=== PATIENT | female | born 1975 | race Hispanic/Latino ===

== ENCOUNTER 2022-05-22 04:57 | Emergency (ER) | payer BC, OTHER ==
--- OUTSIDE RECORDS SUMMARY | 2022-05-22 05:02 | XMS REPORT | Continuity of Care Document ---
:[address] [facility] t Address [address] [place] [address] [address] [place] [address] Care Team Providers Name Role Phone [phone] Primary Care Physician Unavailable TIARRA RICK Attending Clinician Unavailable PARAM MONTELONGO Attending Clinician Unavailable SYSTEM, PROVIDER NOT IN Attending Clinician Unavailable MINH Attending Clinician Unavailable Quintin TATUM Attending Clinician Unavailable LJ Attending Clinician Unavailable CHILO LANDEROS Attending Clinician Unavailable Chilo Landeros MD Attending Clinician ROBERTA Attending Clinician Unavailable Lorena COLLINS Attending Clinician Unavailable GIBSON Attending Clinician Unavailable Manny EDGAR Attending Clinician Unavailable JEANNE Attending Clinician Unavailable Prabhjot TOMLIN Attending Clinician Miguel Angel TORRES Attending Clinician Unavailable BENITO Attending Clinician Unavailable Dileep NOLAN Attending Clinician Unavailable Galina ERICKSON Attending Clinician Unavailable Cristian SANZ Attending Clinician Unavailable [facility] Attending Clinician Unavailable Deepti MANCERA Attending Clinician DEEPTI Attending Clinician Unavailable PRABHJOT Admitting Clinician Unavailable JAYDA Admitting Clinician Unavailable MARY Admitting Clinician Unavailable Prabhjot TOMLIN Admitting Clinician LJ Admitting Clinician Unavailable Payers Payer Name Policy Type Policy Number Effective Date Expiration Date S alan [place] POS [id number] 2020 00:00:00 AETNA HMO [id number] 2015 2020 00:00:00 00:00:00 AETNA CHOICE [id number] 2019 POS II 00:00:00 [place] [id number] 2020 00:00:00 BCBS 2 [id number] 2021 00:00:00 Problems Condition Condition Condition Status Onset Resolution Last Treating Co mments Source Name Details Category Date Date Treatment Clinician Date Osteopenia Osteopenia Disease Active K elsey of necks of necks 9-20 Seybol d of both of both 00:00: femurs - femurs - 00 Not Not Controlled Controlled Obesity Obesity Disease Active Univers (BMI (BMI 4-24 ity of 30-39.9) 30-39.9) 00:00: [place] 00 Medical Branch Chest pain Chest pain Disease Active U nivers 4-24 ity of 00:00: [place] [id number] Medical Branch No known No known Disease Unive rs active active ity of problems problems [facility] Allergies, Adverse Reactions, Alerts Allergy Allergy Status Severity Reaction(s) Onset Inactive Treating Comm ents Source Name Type Date Date Clinician IODINATE Drug Active Low Nausea MD D Class 6 Anderso CONTRAST 00:00: n MEDIA 00 FENTANYL DRUG Active MD INGREDI 03-30 Anderso 00:00: n 00 MORPHINE DRUG Active MD INGREDI 03-30 Anderso 00:00: n 00 ONDANSET DRUG Active MD CELESTE INGREDI 03-30 Anderso 00:00: n 00 PROCHLOR DRUG Active MD PERAZINE INGREDI 03-30 Anderso 00:00: n 00 IODINATE Drug Active Low Nausea MD D Class 603 Anderso CONTRAST 00:00: n MEDIA 00 FENTANYL DRUG Active MD INGREDI 03-30 Anderso 00:00: n 00 MORPHINE DRUG Active MD INGREDI 6 Anderso 00:00: n 00 ONDANSET DRUG Active MD CELESTE INGREDI 03-30 Anderso 00:00: n 00 PROCHLOR DRUG Active MD PERAZINE INGREDI 03-30 Anderso 00:00: n 00 IODINATE Drug Active Low Nausea 2015- MD D Class 6-03 Anderso CONTRAST 00:00: n MEDIA 00 FENTANYL DRUG Active 2016-0 MD INGREDI 6-03 Anderso 00:00: n 00 MORPHINE DRUG Active 2016-0 MD INGREDI 6- Anderso 00:00: n 00 ONDANSET DRUG Active 2016-0 MD CELESTE INGREDI 6 Anderso 00:00: n 00 PROCHLOR DRUG Active 2015-0 MD PERAZINE INGREDI 6-03 Anderso 00:00: n 00 IODINATE Drug Active Low Nausea 2016-0 MD D Class 6-03 Anderso CONTRAST 00:00: n MEDIA 00 FENTANYL DRUG Active 2015-0 MD INGREDI 6 Anderso 00:00: n 00 MORPHINE DRUG Active 2015-0 MD INGREDI 6 Anderso 00:00: n 00 ONDANSET DRUG Active 2015-0 MD CELESTE INGREDI 6 Anderso 00:00: n 00 PROCHLOR DRUG Active 2015-0 MD PERAZINE INGREDI 6 Anderso 00:00: n 00 IODINATE Drug Active Low Nausea 2016-0 MD D Class 6-03 Anderso CONTRAST 00:00: n MEDIA 00 FENTANYL DRUG Active 2015-0 MD INGREDI 6 Anderso 00:00: n 00 IODINATE Drug Active 2015-0 MD D Class 6-03 Anderso CONTRAST 00:00: n MEDIA 00 MORPHINE DRUG Active 2015-0 MD INGREDI 6 Anderso 00:00: n 00 ONDANSET DRUG Active 2015-0 MD CELESTE INGREDI 6 Anderso 00:00: n 00 PROCHLOR DRUG Active 2015-0 MD PERAZINE INGREDI 6 Anderso 00:00: n 00 FENTANYL DRUG Active 2015-0 MD INGREDI 6 Anderso 00:00: n 00 IODINATE Drug Active 2016-0 MD D Class 6-03 Anderso CONTRAST 00:00: n MEDIA 00 MORPHINE DRUG Active 2015-0 MD INGREDI 6- Anderso 00:00: n 00 ONDANSET DRUG Active 2016-0 MD CELESTE INGREDI 6 Anderso 00:00: n 00 PROCHLOR DRUG Active 2015-0 MD PERAZINE INGREDI 6-03 Anderso 00:00: n 00 FENTANYL DRUG Active 2016-0 MD INGREDI 6-03 Anderso 00:00: n 00 MORPHINE DRUG Active 2015-0 MD INGREDI 6 Anderso 00:00: n 00 ONDANSET DRUG Active CELESTE INGREDI 03-30 Anderso 00:00: n 00 PROCHLOR DRUG Active PERAZINE INGREDI 03-30 Anderso 00:00: n 00 Fentanyl Propensi Active Anaphylaxis K elsey Citrate ty to 03-30 Seybold adverse 00:00: reaction 00 s Iodinate Propensi Active Anaphylaxis SHE HAD A Vero d ty to 03-30 CODE BLUE Seybold Contrast adverse 00:00: AT MD reaction 00 TY s WHEN THEY GAVE IT TO HER LAST TIME, AND SHE COULD NOT BREATH. She has tolerated iodinated contrast on multiple occasions with premedica tion.Pt vomited x1 from IV Iodine contrast infusion and is willing to proceed without any premedica tion, notified and said okay to proceed w/o premedica tionSHE HAD A CODE BLUE AT MD [place] WHEN THEY GAVE IT TO HER LAST TIME, AND SHE COULD NOT BREATH. She has tolerated iodinated contrast on multiple occasions with premedica tion.Pt vomited x1 from IV Iodine contrast infusion and is willing to proceed without any premedica tion, notified and said okay to proceed w/o premedica tion Morphine Propensi Active Hives Vero ty to 03-30 Seybold adverse 00:00: reaction 00 s Ondanset Propensi Active Hives Vero celeste ty to 03-30 Seybold adverse 00:00: reaction 00 s FENTANYL DRUG Active Anaphylaxis Uni vers INGREDI 03-30 ity of 00:00: [place] 00 [facility] IODINATE Drug Active Anaphylaxis Uni vers D Class 03-30 ity of CONTRAST 00:00: [place] MEDIA 00 Medical Branch MORPHINE DRUG Active Hives Univers INGREDI 03-30 ity of 00:00: [place] 00 [facility] Branch ONDANSET DRUG Active Hives Univers CELESTE INGREDI 03-30 ity of 00:00: [place] 00 Medical Branch PROCHLOR DRUG Active Hives Univers PERAZINE INGREDI 03-30 ity of 00:00: [place] 00 Medical Branch Iodinate Propensi Active Anaphylaxis SHE HAD A Univers d ty to 03-30 CODE BLUE ity of Contrast adverse 00:00: AT MD [place] Media reaction 00 TY Medica l s WHEN THEY Branch GAVE IT TO HER LAST TIME, AND SHE COULD NOT BREATH. She has tolerated iodinated contrast on multiple occasions with premedica tion. Prochlor Propensi Active Hives Vero perazine ty to 03-30 Ernesto Edisylat adverse 00:00: e reaction 00 s NO KNOWN Drug Active Univers ALLERGIE Class ity of S [facility] Social History Social Habit Start Date Stop Date Quantity Comments Source Exposure to Not sure Vero vee SARS-CoV-2 (event) Tobacco use and 2021-02-18 2021-02-18 Never used Universit y of exposure 00:00:00 00:00:00 [facility] Alcohol intake 2021-02-18 2021-02-18 Ex-drinker [facility] 00:00:00 00:00:00 (finding) [facility] Sex Ass[birth year] At [birth year] Vero rubio 00:00:00 00:00:00 Smoking Status Start Date Stop Date Source Never smoker [facility] acute hospital Medications Ordered Filled Start Stop Current Ordering Indication Dosage Frequency Signature Comments Components Source Medication Medication Date Date Medication? Clinician (SIG) Name Name Cholecalcif Yes Take by Giovanny rubin jesse 9-20 mouth 2 Seybold (Vitamin 16:46: times D3) 1.25 MG 30 daily (48000 UT) oral Capsule Zinc 10 MG Yes Take by Nhi ey mouth/throa 9-20 mouth Seybold t Lozenge 16:46: daily 30 Cyanocobala Yes 500ug Take 500 K elsey min 500 MCG 9-20 mcg by Seybol d oral Tablet 16:46: mouth 30 daily Hydroxychlo Yes 200mg Take 200 K elsey roquine 9-20 mg by Seybold Sulfate 200 16:46: mouth 2 MG oral 30 times Tablet daily Meloxicam Yes 15mg Take 15 mg Ke lsey 15 MG oral 9-20 by mouth Seybo ld Tablet 16:46: as needed 30 Multiple Yes 1{tbl} Take 1 Kelse y Vitamin 9-20 tablet by Seybold (Multi-Christina 16:46: mouth min) oral 30 daily Tablet Alendronate Yes [id number] 5mg Take 1 Vero Sodium 5 MG 9-20 tablet (5 Sey bold oral Tablet 00:00: mg total) 00 by mouth every morning (before breakfast) Lisdexamfet Yes [id number] 30mg Take 1 Vero amine 9-20 capsule Seybold Dimesylate 00:00: (30 mg (Vyvanse) 00 total) by 30 MG oral mouth Capsule every morning Gabapentin 2020- No 300mg Take 300 K elsey 100 MG oral 7-20 10-19 mg by Seybol d Capsule 00:00: 04:59 mouth 00 :00 nightly Pantoprazol Yes 40mg Take 40 mg Vero e Sodium 40 4-26 by mouth Seyb old MG oral 00:00: daily Tablet 00 (with Delayed breakfast) Response Sucralfate Yes 1000mg Take 1,000 Vero 1 g oral 4-26 mg by Seybold Tablet 00:00: mouth 4 00 times daily famotidine Yes 20mg 20 mg, Unive rs (PEPCID AC) 4-25 Oral, BID, it y of tablet 20 01:00: [place] 00 on [facility] Medical 02/18/21 at Jet 1999, Until Discontinu ed, Routine multivit-mi 2020- No Take by Yolis heller n-ferrous 4-24 04-24 mouth. ity of fumarate 9 22:00: 00:00 [place] mg iron/15 51 :00 Medical mL Liqd Jet hydroxychlo 2020- No 200mg Take 200 Univers roquine 4-24 04-24 mg by ity of sulfate 22:00: 00:00 mouth 2 [place] (PLAQUENIL 51 :00 (two) Medical ORAL) times Jet daily. ergocalcife 2020- No Take by Yolis heller rol, 4-24 04-24 mouth 2 ity of vitamin D2, 22:00: 00:00 (two) [place] (VITAMIN D [place] :00 times Medical ORAL) daily. Jet meloxicam 2020- No 15mg Take 15 mg U pina 15 mg TbDL 4-24 04-24 by mouth ity of 22:00: 00:00 daily. [place] 51 :00 Medical Branch predniSONE 202-0 202- No 50mg 50 mg, Univ ers (DELTASONE) 4-24 04-25 Oral, Q6H, i ty of tablet 50 17:00: 10:59 3 doses, Patel as mg 00 :00 First dose Medical on [facility] 02/18/21 at 1200, Last dose on 02/19/21 at 0000, Routine enoxaparin 2020-0 Yes 1mg/kg 90 mg Univ ers (LOVENOX) 4-24 (rounded ity of injection 15:45: [place] 87 mg [place] 90 mg 00 = 1 mg/kg Medical ?87 kg), [facility], Q12H, First dose (after last modificati on) on [facility] 02/18/21 at 1045, Until Discontinu ed, Routine HYDROcodone 2020-0 Yes 1{tbl} 1 tablet, Univers -acetaminop 4-24 Oral, ity of hen (NORCO) 14:32: Q6HPRN, Patel as 10-325 mg 39 Starting Medica l tablet 1 [facility] tablet 02/18/21 at 0932, Until Discontinu ed, Routine, Pain (scale 4-6) meloxicam 2020-0 Yes 15mg 15 mg, Univer s (MOBIC) 4-24 Oral, ity of tablet 15 14:00: DAILY, [place] mg 00 First dose Medical on [facility] 02/18/21 at 0900, Until Discontinu ed aspirin 2020-0 Yes 81mg 81 mg, Univers chewable 4-24 Oral, ity of tablet 81 14:00: DAILY, [place] mg 00 First dose Medical on [facility] 02/18/21 at 0900, Until Discontinu ed, Routine diphenhydrA 2020-0 Yes 50mg 50 mg, Univ ers MINE 4-24 Oral, ity of (BENADRYL) 13:46: SEE-INSTRU [place] tablet 50 52 CTIONS, 1 Medic al mg dose, Branch Starting [facility] 02/18/21 at 0846, Until Discontinu ed, Routine hydrOXYchlo 2020-0 Yes 200mg 200 mg, Un danielle roQUINE 4-24 Oral, BID, ity of (PLAQUENIL) 13:00: First dose [place] tablet 200 00 on [facility] Medical mg 02/18/21 at Branch 0800, Until Discontinu ed
Zuleyma cation: Rheumatic disorder maalox:diph 2020- No 15mL 15 mL, Uni vers enhydrAMINE 02-18 Oral, ity of :lidocaine 12:15: 13:59 ONCE, 1 Patel as 2 % viscous 00 :00 dose, Sat Med ical 1:1:1 02/18/21 at Jet (FIRST-MOUT 0715, HWASH BLM) Routine oral suspension 15 mL acetaminoph Yes 650mg 650 mg, Un danielle en 02-18 Oral, ity of (TYLENOL) 10:07: Q6HPRN, [place] tablet 650 04 Starting Medic al mg Sat Jet 02/18/21 at 0507, Until Discontinu ed, Routine, Pain (scale 1-3) multivit-mi Yes Take by Un danielle n-ferrous 5-05 mouth. ity of fumarate 9 19:10: [place] mg iron/15 45 Medical mL [facility] multivit-mi Yes Take by Un danielle n-ferrous 5-05 mouth. ity of fumarate 9 19:10: [place] mg iron/15 45 Medical mL [facility] multivit-mi Yes Take by Un danielle n-ferrous 5-05 mouth. ity of fumarate 9 19:10: [place] mg iron/15 45 Medical mL [facility] multivit-mi Yes Take by Un danielle n-ferrous 5-05 mouth. ity of fumarate 9 19:10: [place] mg iron/15 45 Medical mL [facility] Immunizations Ordered Filled Immunization Date Status Comments [facility] Immunization Name Name SARS-COV-2 COVID-19 2021-02-01 Completed Unive rsity of MODERNA VACCINE 00:00:00 [facility] Covid-19 Vaccine 2021-02-01 Completed Vero sawant (Moderna), 00:00:00 Mrna-lnp, Esau Protein, Pf, 100 Mcg/0.5ml,IM SARS-COV-2 COVID-19 2021-01-04 Completed Unive rsity of MODERNA VACCINE 00:00:00 [facility] Covid-19 Vaccine 2021-01-04 Completed Vero sawant (Moderna), 00:00:00 Mrna-lnp, Esau Protein, Pf, 100 Mcg/0.5ml,IM Vital Signs Vital Name Observation Time Observation Value Comments Source Systolic blood 2021-07-17 21:39:00 114 mm[Hg] Vero Mariscalyblakia pressure Diastolic blood 2021-07-17 21:39:00 76 mm[Hg] Anthony y Seybold pressure Heart rate 2021-07-17 21:39:00 109 /min Vero liconabohemalatha Body temperature 2021-07-17 21:39:00 36.39 Clarisse Nhi licona Seyblakia Respiratory rate 2021-07-17 21:39:00 20 /min Nhi Orozco Body height 2021-07-17 21:39:00 160 cm Vero liconabohemalatha Body weight 2021-07-17 21:39:00 86.274 kg Vero liconabohemalatha BMI 2021-07-17 21:39:00 33.69 kg/m2 Vero sawant HEIGHT 2021-02-18 18:13:09 158.5 cm WEIGHT 2021-02-18 18:13:09 86.2 kg Systolic blood 2021-02-18 16:22:00 115 mm[Hg] Univer sity of [facility] Diastolic blood 2021-02-18 16:22:00 79 mm[Hg] Unive rsity of [facility] Heart rate 2021-02-18 16:22:00 80 /min [facility] Body temperature 2021-02-18 16:22:00 36.44 Clarisse [facility] Res[facility] rate 2021-02-18 16:22:00 16 /min [facility] Oxygen saturation in 2021-02-18 16:22:00 91 /min [facility] blood by [facility] Pulse oximetry Branch Body height 2021-02-18 09:00:00 160 cm [facility] Body weight 2021-02-18 09:00:00 87 kg [facility] BMI 2021-02-18 09:00:00 33.98 kg/m2 [facility] WEIGHT 2021-02-09 09:04:00 87.5 kg WEIGHT 2021-01-25 07:07:00 85.2 kg WEIGHT 2021-01-19 11:07:00 87.3 kg WEIGHT 2021-01-12 09:04:00 86.8 kg HEIGHT 2021-01-05 13:21:00 158.5 cm WEIGHT 2021-01-05 13:21:00 85.9 kg HEIGHT 2020-08-23 10:12:02 158.5 cm WEIGHT 2020-08-23 10:12:02 81.6 kg HEIGHT 2020-05-05 00:00:00 158.5 cm WEIGHT 2020-05-05 00:00:00 84 kg HEIGHT 2020-04-26 00:00:00 158.5 cm WEIGHT 2020-04-26 00:00:00 83.3 kg Systolic blood 2020-03-01 19:14:00 131 mm[Hg] [facility] 2020-03-01 19:14:00 92 mm[Hg] Unive [facility] Heart rate 2020-03-01 19:07:00 120 /min [facility] Body temperature 2020-03-01 19:07:00 38.44 Clarisse [facility] Respiratory rate 2020-03-01 19:07:00 18 /min [facility] Body height 2020-03-01 19:07:00 160 cm [facility] Body weight 2020-03-01 19:07:00 80.74 kg [facility] BMI 2020-03-01 19:07:00 31.53 kg/m2 [facility] Oxygen saturation in 2020-03-01 19:07:00 99 /min [facility] Arterial blood by [facility] Pulse oximetry Branch Procedures Procedure Date / Time Performing Clinician Source Performed TROPONIN I 2021-02-18 10:54:00 Justyna Higgins [facility] THYROID STIMULATING 2021-02-18 10:54:00 Tiarra Rick [facility]ORMONE [facility] HEPATIC FUNCTION PANEL 2021-02-18 10:54:00 Tiarra Rick [facility] ([id number]) (ALB,T.PRO,BILI Medical Branch T,BU/BC,ALT,AST,ALK PHOS) BASIC METABOLIC PANEL 2021-02-18 10:54:00 Prabhjot [facility] (NA, K, CL, CO2, Medical Branch GLUCOSE, BUN, CREATININE, CA) LIPID PANEL 2021-02-18 10:54:00 [facility] ([id number])(TOTAL Medical Branch CHOLESTEROL, TRIGLYCERIDES, HDL) CBC WITH DIFF 2021-02-18 10:54:00 [facility] GLYCOSYLATED HEMOGLOBIN 2021-02-18 10:54:00 [facility] (A1C) [facility] PROTHROMBIN TIME / INR 2021-02-18 10:54:00 [facility] D-DIMER 2021-02-18 10:54:00 [facility] ACTIVATED PARTIAL 2021-02-18 10:54:00 [facility] THRMPLAS [facility] N-TERMINAL PRO-BNP 2021-02-18 10:54:00 Justyna Higgins [facility] POCT URINALYSIS 2020-03-01 00:00:00 Jennifer Tatum [facility] Encounters Start End Encounter Admission Attending Care Care Encounter Source Date/Time Date/Time Type Type Clinicians Facility Department ID 2021-11-30 Outpatient ROMI LLANOS [id number] 18:04:38 Andgloria davis 2021-11-30 Outpatient ROMI LLANOS [id number] 18:04:38 Andmeliao ryan 2021-11-30 Outpatient ROMI LLANOS [id number] 18:04:38 Andmeliao ryan 2021-08-27 Inpatient U [facility] [id number] Univers 15:02:07 [facility] 2021-08-18 Outpatient JAYDAROMI MASTERS Ale/Hep/Nu [id number] 17:00:56 PARAM davis 2021-04-20 Outpatient ROMI HUNTLEY MDA [id number] 12:43:19 PROVIDER Fadi o n 2020-05-17 Outpatient ROMI WILKINSON MDA [id number] 14:35:34 BALTAZAR davis 2020-05-06 Outpatient TATUM, MDA MDA [id number] 10:32:42 AKBAR Aponteo n 2022-05-14 2022-05-14 Outpatient ARLENE CALHOUN, MDA MDA [id number] 09:57:45 23:59:00 ULISES Esquivel rso n 2022-05-14 2022-05-14 Outpatient ARLENE CALHOUN, MDA MDA [id number] 07:51:04 07:51:04 ULISES Esquivel rso n 2021-09-18 2021-09-18 Outpatient ARLENE CALHOUN, MDA MDA [id number] 09:00:00 23:59:00 ULISES Esquivel rso n 2021-09-18 2021-09-18 Outpatient VERO LANDEROS [id number] Vero 16:30:00 16:30:00 ERIKA vee 2021-07-17 2021-07-17 Office Elías, Lyle [id number] Vero 16:37:57 17:07:57 Visit Erika Patton [id number] ramiro Gongora [id number] 2021-07-14 2021-07-14 Outpatient VERO LANDEROS [id number] Vero 14:30:00 14:30:00 ERIKA vee 2021-07-07 2021-07-07 Outpatient ARLENE GRANADOS, MDA MDA [id number] 09:33:43 23:59:00 BIGG davis 2021-07-07 2021-07-07 Outpatient ARLENE COLLINS, MDA MDA [id number] 13:54:46 15:12:27 MARLEN davis 2021-07-07 2021-07-07 Outpatient ARLENE COLLINS, MDA MDA [id number] 12:38:20 12:38:20 MARLEN davis 2021-07-07 2021-07-07 Outpatient ARLENE COLLINS, MDA MDA [id number] 11:51:02 11:51:02 MARLEN davis 2021-07-07 2021-07-07 Outpatient ARLENE DAMONI, MDA MDA [id number] MD 10:40:48 11:43:41 BIGG davis 2021-05-29 2021-05-29 Outpatient YANNI MAYA MDA MDA [id number] 15:20:00 23:59:00 Fadi davis 2021-05-16 2021-05-16 Outpatient ARLENE GRANADOS, MDA MDA [id number] MD 14:15:00 23:59:00 BIGG davis 2021-05-16 2021-05-16 Outpatient ARLENE GRANADOS, MDA MDA [id number] 13:21:36 14:43:37 BIGG davis 2021-04-30 2021-04-30 Outpatient ARLENE CALHOUN, MDA MDA [id number] 09:42:04 23:59:00 ULISES davis 2021-04-27 2021-04-27 Outpatient ARLENE CALHOUN, MDA MDA [id number] MD 09:30:00 23:59:00 ULISES davis 2021-04-27 2021-04-27 Outpatient ARLENE CALHOUN, MDA MDA [id number] 09:00:00 09:29:00 ULISES luke n 2021-02-18 2021-02-20 Outpatient ER EDGAR, MDA Emergency [id number] 14:57:00 17:34:00 BART davis 2021-02-19 2021-02-19 Outpatient ARLENE ANGEL, MDA MDA [id number] 08:21:47 08:46:40 KARMA davis 2021-02-18 2021-02-18 [facility] [id number] Univers 04:06:00 13:41:00 [facility] Tiarra Telles [id number] [facility] [id number] [facility] [id number] [facility] joey 081 Branch 2021-02-09 2021-02-09 Outpatient ARLENE CALHOUN, MDA MDA [id number] 09:00:00 23:59:00 ULISES davis 2021-02-01 2021-02-01 [facility] Quintin TORRES [facility] [id number] Univers 14:40:00 14:40:[address] [facility] 2021-01-25 2021-01-25 Outpatient EL LJ, MDA HN Surgery [id number] 05:45:00 14:46:00 ULISES Esquivel rso n 2021-01-23 2021-01-23 Outpatient LISA LAMAS MDA MDA [id number] 14:15:30 14:36:06 Fadi o n 2021-01-23 2021-01-23 Outpatient LISA LAMAS MDA MDA [id number] 12:11:05 12:20:10 Fadi o n 2021-01-19 2021-01-19 Outpatient EL LJ, MDA MDA [id number] 10:30:00 23:59:00 ULISES Esquivel rso n 2021-01-19 2021-01-19 Outpatient EL LJ, MDA MDA [id number] 09:22:16 09:22:16 ULISES Alvin rso n 2021-01-12 2021-01-12 Outpatient EL LJ, MDA MDA [id number] 10:00:00 23:59:00 ULISES Esquivel rso n 2021-01-12 2021-01-12 Outpatient EL LJ, MDA MDA [id number] 08:30:00 09:59:00 ULISES Esquivel rso n 2021-01-05 2021-01-05 Outpatient EL BUNI, MDA MDA [id number] 14:14:08 23:59:00 BIGG davis 2021-01-05 2021-01-05 Outpatient EL BUNI, MDA MDA [id number] 13:13:30 14:07:40 BIGG davis 2021-01-04 2021-01-04 Outpatient [facility] [id number] Univers 14:40:00 14:40:00 [facility] 2020-08-23 2020-08-23 Outpatient EL BUNI, MDA MDA [id number] MD 11:10:08 23:59:00 BIGG davis 2020-08-23 2020-08-23 Outpatient EL BUNI, MDA MDA [id number] MD 09:46:02 10:49:07 BIGG Mariners o n 2020-07-07 2020-07-07 Outpatient EL BUNI, MDA MDA [id number] MD 00:00:00 00:00:00 BIGG Mariners o n 2020-07-07 2020-07-07 Outpatient EL BUNI, MDA MDA [id number] MD 00:00:00 00:00:00 BIGG Mariners o n 2020-07-07 2020-07-07 Outpatient EL BUNI, MDA MDA [id number] MD 00:00:00 00:00:00 BIGG Mariners o n 2020-07-07 2020-07-07 Outpatient EL BUNI, MDA MDA [id number] MD 00:00:00 00:00:00 BIGG Mariners o n 2020-06-30 2020-06-30 Outpatient EL BUNI, MDA MDA [id number] MD 00:00:00 00:00:00 BIGG Mariners o n 2020-06-30 2020-06-30 Outpatient EL BUNI, MDA MDA [id number] MD 00:00:00 00:00:00 BIGG Mariners o n 2020-05-17 2020-05-17 Outpatient EL NEBGEN, MDA MDA [id number] MD 09:36:02 10:19:40 ALONDRACANDI Mariners o n 2020-05-16 2020-05-16 Outpatient EL BUNI, MDA MDA [id number] MD 11:56:24 11:56:24 BIGG Mariners o n 2020-05-05 2020-05-05 Outpatient EL BUNI, MDA MDA [id number] MD 10:33:33 11:22:14 BIGG Mariners o n 2020-05-05 2020-05-05 Outpatient EL BUNI, MDA MDA [id number] MD 00:00:00 00:00:00 BIGG Fadi o ryan 2020-05-03 2020-05-03 Outpatient EL RAMÓN-GINS MDA MDA [id number] MD 10:16:31 23:59:00 Fadi ORTEGA 2020-04-27 2020-04-27 Outpatient EL RAMÓN-GINS MDA MDA [id number] MD 10:16:09 23:59:00 Fadi ORTEGA 2020-04-27 2020-04-27 Outpatient EL BUNI, MDA MDA [id number] 07:12:23 07:12:23 BIGGTREY Aponte wilda davis 2020-04-27 2020-04-27 Outpatient EL BUNI, MDA MDA [id number] 07:12:03 07:12:03 BIGG Aponte wilda davis 2020-04-27 2020-04-27 Outpatient EL BUNI, MDA MDA [id number] 07:11:50 07:11:50 BIGG Fadimelia davis 2020-04-27 2020-04-27 Outpatient EL BUNI, MDA MDA [id number] 07:11:21 07:11:21 BIGG Marinmelia davis 2020-04-26 2020-04-26 Outpatient EL BUNI, MDA MDA [id number] 15:15:00 23:59:00 BIGG Marinmelia davis 2020-04-26 2020-04-26 Outpatient EL MDA MDA [id number] MD 15:51:10 15:51:10 Fadi davis 2020-04-26 2020-04-26 Outpatient EL LISETHWANI, MDA MDA [id number] MD 14:54:54 15:48:59 MARLEN davis 2020-04-26 2020-04-26 Outpatient EL BUNI, MDA MDA [id number] MD 15:00:00 15:14:00 BIGG Aponte wilda davis 2020-04-26 2020-04-26 Outpatient EL BUNI, MDA MDA [id number] MD 13:38:56 14:48:57 BIGG Fadimelia davis 2020-03-03 2020-03-03 Telephone Cristian BUD [id number] Univers 00:00:00 00:00:00 Erika ALVA [id number] it y of [facility] [id number] Patel as [phone] [address] 2020-03-02 2020-03-02 Telephone Pob1, Acute [facility] [id number] Univers 00:00:00 00:00:00 [facility] [id number] ity [facility] [id number] Patel as Proffilomenaio [phone] Mi dical [facility] [address] 2020-03-01 2020-03-01 Urgent Pob1, Acute Care Clinic [facility] 1. [id number] Univers 13:48:46 15:35:06 Anuj Jennifer Tatum [facility] [id number] lorena [facility] [id number] Patel as Michaelio [phone] Mi dical nal [address] 2020-03-01 2020-03-01 Outpatient R DEEPTI [facility] [id number] [facility] 13:40:00 13:40:00 JENNIFER moralorena [facility] Results Test Description Test Time Test Comments Results Result Comments Source TROPONIN I 2021-02-18 14:36:43 Test Item Value Reference Range Interpretation Comme nts TROPONIN I (test code = 0.000 ng/mL See_Comment [Au tomated message] The [id number]) system which ge nerated this result tra nsmitted reference range : <=0.034. The reference r yoav was not used to int erpret this result as normal/abnormal . KIERA (test code = KIERA) Equal or Less than 0.034 ng/ml---Normal ?Note: Cardiac troponin begins to rise 3-4 hours after the onset of ischemia. Repeat in 4-6 hours if the sample was drawn within 3-4 hours of the onset of the symptom and found normal. Between 0.035 and 0.120 ng/mL--- Borderline. Questionable myocardial injury or necrosis ? ?Note: Serial measurement may be necessary to confirm or exclude the diagnosis of myocardial injury or necrosis; Clinical correlation (symptoms, EKGs, imaging studies, and others) required; Repeat in 4-6 hours if clinically indicated. ? Equal or Higher than 0.121 ng/mL---Abnormal. Myocardial Injury or Necrosis Likely ? Biotin has been reported to cause a negative bias, interpret results relative to patient's use of biotin. ? Lab Interpretation (test Normal code = 19519-9) [facility] [id number] 14:33:42 Test Item Value Reference Range Interpretation Comments NT-proBNP (test code 24 pg/mL See_Comment [Autom ated = 1391957280) message] The system which generated this result transmitted reference range : <=125. The reference range was not used to interpret this result as normal/abnormal . KIERA (test code = KIERA) Biotin has been reported to cause a negative bias, interpret results relative to patient's use of biotin. Lab Interpretation Normal (test code = 18871-0) [facility] IrvingThyroid Stimulating Hormone (TSH)2021-02-18 12:09:34 Test Item Value Reference Range Interpretation Comments TSH (test code = See_Comment [Automated message] [id number]) The system [employer] generated this result transmitted ref erence range: 0.45 - 4 .70 mIU/L. The refe rence range was not u sed to interpret this result as normal/abnor mal. Lab Interpretation (test Normal code = 41068-0) [facility] Irving[facility]cosylated Hemoglobin (A1C)2021-02-18 11:50:23 Test Item Value Reference Range Interpretation Comments HGB A1C (test code = 5.7 % 4.0-5.7 4548-4) KIERA (test code = KIERA) Reference RangesNormal: <5.7%Prediabetes: 5.7 - 6.4%Diabetes: > 6.5% Lab Interpretation (test Normal code = 86617-2) [facility] Irving[facility] (Total Cholesterol, Triglycerides, HDL)2021-02-18 11:40:12 Test Item Value Reference Range Interpretation Comments CHOL (test code = 177 mg/dL 120-200 5150799755) HDL (test code = 36 mg/dL >50 L 1933114744) HDLC RATIO (test code = See_Comment H [Au tomated message] 4633719970) The system [employer] generated this result transmit fredis reference range : <=4.5. The refe rence range was not u sed to interpret th is result as normal/abnormal . TRIG (test code = 215 mg/dL 30-170 H 6929793906) LDL CHOL (test code = 98 mg/dL See_Comment [Auto mated message] 37863-3) The system [employer] generated this result transmit fredis reference range : <=160. The refe rence range was not u sed to interpret th is result as normal/abnormal . VLDL (test code = 43 mg/dL 5-60 9804604312) Lab Interpretation (test Abnormal code = 92270-6) [facility] METABOLIC PANEL (NA, K, CL, CO2, GLUCOSE, BUN, CREATININE, CA)2021-02-18 11:39:52 Test Item Value Reference Range Interpretation Comments NA (test code = 138 mmol/L 135-145 4248171654) K (test code = 3.7 mmol/L 3.5-5.0 1593868633) CL (test code = 104 mmol/L 98-108 8486299013) CO2 TOTAL (test code = 27 mmol/L 23-31 1635468820) AGAP (test code = 2-16 1951045353) BUN (test code = 8 mg/dL 7-23 4102367643) GLUCOSE (test code = 120 mg/dL 70-110 H 1492089170) CREATININE (test code = 0.45 mg/dL 0.50-1.04 L 5003805892) CALCIUM (test code = 9.6 mg/dL 8.6-10.6 2000732270) eGFR (test code = mL/min/1.73m2 2870265626) KIERA (test code = KIERA) Association of Glomerular Filtration Rate (GFR) and Staging of Kidney Disease* + --+ --+ ------+| GFR (mL/min/1.73 m2) ?| With Kidney Damage ?| ?Without Kidney Damage+ --------+ --------+ +| ?>90 ?| ?Stage one ?| ? Normal ?+ ---+ ---+ -------+| ?60-89 ?| ?Stage two ?| ? Decreased GFR ? + --+ --+ ------+| ?30-59 ?| ?Stage three ?| ? Stage three ? + --+ --+ ------+| ?15-29 ?| ?Stage four ? | ? Stage four ?+ ---+ ---+ -------+| ?<15 (or dialysis) ? ?| ?Stage five ? | ? Stage five ?+ ---+ ---+ -------+ *Each stage assumes the associated GFR level has been in effect for at least three months. ?Stages 1 to 5, with or without kidney disease, indicate chronic kidney disease. Notes: Determination of stages one and two (with eGFR >59mL/min/1.73 m2) requires estimation of kidney damage for at least three months as defined by structural or functional abnormalities of the kidney, manifested by either:Pathological abnormalities or Markers of kidney damage (including abnormalities in the composition of the blood or urine or abnormalities in imaging tests). Lab Interpretation Abnormal (test code = 31893-9) [facility]AT[facility] FUNCTION PANEL (36488) (ALB,T.PRO,BILI T,BU/BC,ALT,AST,ALK PHOS)2021-02-18 11:39:52 Test Item Value Reference Range Interpretation Comments TOTAL BILI (test code = 7902087570) 0.3 mg/dL 0.1-1.1 BILI UNCON (test code = 5489372707) 0.2 mg/dL 0.1-1.1 BILI CONJ (test code = 3591133006) 0.0 mg/dL 0.0-0.3 T PROTEIN (test code = 4567508367) 6.3 g/dL 6.3-8.2 ALBUMIN (test code = 9967142830) 3.9 g/dL 3.5-5.0 ALK PHOS (test code = 5327401070) 75 U/L 34-122 ALTv (test code = 1742-6) 32 U/L 5-35 AST(SGOT) (test code = 5384825071) 30 U/L 13-40 Lab Interpretation (test code = Normal 05099-1) [facility] [id number] 11:27:49 Test Item Value Reference Interpretation Comments Range D-DIMER (test code = See_Comment H [Autom ated 5901107329) message] The system which generated this result transmitted reference range : <0.41 ?g/mL (FEU). The reference range was not used to interpret this result as normal/abnormal . KIERA (test code = This test may be KIERA) used in conjunction with a clinical pretest probability (PTP) assessment model to exclude venous thromboembolism (VTE) in patients suspected of deep venous thrombosis (DVT) and pulmonary embolism (PE) A D-Dimer value less than 0.50 ?g/ml (FEU) has a negative predicative value of 96 to 100% (95% CI)and 97 to 100% (95% CI) as an aid in the diagnosis of deep vein thrombosis (DVT) and pulmonary embolism when there is low or moderate pretest probability of PE or DVT. D-Dimer values are expressed in initial fibrinogen equivalent units (FEU)" The assay results should be used with other information, including the clinical context, in forming a diagnosis. Lab Interpretation Abnormal (test code = 70558-7) [facility] IrvingaPTT2021-04-24 11:21:10 Test Item Value Reference Range Interpretation Comments APTT Patient (test See_Comment [Automat ed code = 3173-2) message] The system which generated this result transmitted reference range : 23 - 38 Seconds . The reference range was not used to interpr et this result as normal/abnormal . KIERA (test code = KIERA) The [facility] patient population mean normal value for aPTT is 30 seconds. Lab Interpretation Normal (test code = 50703-6) [facility] IrvingProthrombin Time / [id number] 11:19:09 Test Item Value Reference Range Interpretation Comments PROTIME PATIENT (test See_Comment [Auto mated message] code = 5964-2) The system wh ich generated this result transmitted ref erence range: 12.0 - 1 4.7 Seconds. The re ference range was not u sed to interpret this result as normal/abnor mal. INR (test code = 6301-6) Nor mal INR <1.1; Warfarin Therap eutic range 2.0 to 3. 0 or 2.5 to 3.5, dep ending upon the indica tions. Lab Interpretation (test Normal code = 00227-0) [facility] IrvingCBC WITH [id number] 11:09:46 Test Item Value Reference Range Interpretation Comments WBC (test code = See_Comment [Automated 0890-2) message] The sy stem which generated this result transmitted reference range : 4.30 - 11.10 10*3/?L. The reference range was not used to interpret this result as normal/abnormal . RBC (test code = See_Comment [Automated 139-8) message] The sy stem which generated this result transmitted reference range : 3.93 - 5.25 10*6/?L. The reference range was not used to interpret this result as normal/abnormal . HGB (test code = 11.8 g/dL 11.6-15.0 718-7) HCT (test code = 35.6 % 35.7-45.2 L 4544-3) MCV (test code = 87.7 fL 80.6-95.5 787-2) MCH (test code = 29.1 pg 25.9-32.8 785-6) MCHC (test code = 33.1 g/dL 31.6-35.1 786-4) RDW-SD (test code = 43.2 fL 39.0-49.9 43059-4) RDW-CV (test code = 13.4 % 12.0-15.5 788-0) PLT (test code = See_Comment [Automated 777-3) message] The sy stem which generated this result transmitted reference range : 166 - 358 10*3/ ?L. The reference r yoav was not used to interpret this result as normal/abnormal . MPV (test code = 11.6 fL 9.5-12.9 96113-8) NRBC/100 WBC (test See_Comment [Automat ed code = 0311230877) message] The system which generated this result transmitted reference range : 0.0 - 10.0 /100 WBCs. The refer ence range was not u sed to interpret th is result as normal/abnormal . NRBC x10^3 (test code <0.01 See_Comment [Auto mated = 5605686324) message] The s ystem which generated this result transmitted reference range : 10*3/?L. The reference range was not used to interpret this result as normal/abnormal . GRAN MAT (NEUT) % 66.9 % (test code = 770-8) IMM GRAN % (test code 0.40 % = 1710524699) LYMPH % (test code = 22.6 % 736-9) MONO % (test code = 6.2 % 5905-5) EOS % (test code = 3.5 % 713-8) BASO % (test code = 0.4 % 706-2) GRAN MAT x10^3(ANC) 5.22 10*3/uL 1.88-7.09 (test code = 7454134502) IMM GRAN x10^3 (test 0.03 10*3/uL 0.00-0.06 code = 6060644483) LYMPH x10^3 (test code 1.76 10*3/uL 1.32-3.29 = 731-0) MONO x10^3 (test code 0.48 10*3/uL 0.33-0.92 = 742-7) EOS x10^3 (test code = 0.27 10*3/uL 0.03-0.39 711-2) BASO x10^3 (test code 0.03 10*3/uL 0.01-0.07 = 704-7) Lab Interpretation Abnormal (test code = 65114-1) [facility] acute hospital URINALYSIS W SPECIFIC [id number] 19:43:00 Test Item Value Reference Range Interpretation Comments POCT U SP GRAV (test code = 1.010 mg/dl 1.005-1.025 3255) POCT PH U (test code = 3254) 8 mg/dl 5-8 POCT U LEUK EST (test code = + Negative - Negative 3) POCT U NIT (test code = 3262) negative Negative - Negative POCT U PROT (test code = trace Negative - Negative 3259) POCT U GLU (test code = 3256) Negative - Negative POCT U KETONE (test code = negative Negative - Negative 3258) POCT U UROBILI (test code = normal 0.2-1 3260) POCT U BILI (test code = negative Negative - Negative 3261) POCT U BLD (test code = 3257) Negative - Negative POCT U COLOR (test code = dark yellow 3266) POCT U APPEAR (test code = cloudy 3267) General acute hospital URINALYSIS W SPECIFIC [id number] 19:43:00 Test Item Value Reference Range Interpretation Comments POCT U SP GRAV (test code = 1.010 mg/dl 1.005-1.025 3255) POCT PH U (test code = 3254) 8 mg/dl 5-8 POCT U LEUK EST (test code = + Negative - Negative 3263) POCT U NIT (test code = 3262) negative Negative - Negative POCT U PROT (test code = trace Negative - Negative 3259) POCT U GLU (test code = 3256) Negative - Negative POCT U KETONE (test code = negative Negative - Negative 3258) POCT U UROBILI (test code = normal 0.2-1 3260) POCT U BILI (test code = negative Negative - Negative 326) POCT U BLD (test code = 3257) Negative - Negative POCT U COLOR (test code = dark yellow 3266) POCT U APPEAR (test code = cloudy 326) [facility]
[2022-05-22 05:39] LABS: Absolute Lymphocytes (CBC) 2.4 K/uL (0.7-4.9); Hematocrit 39.5 % (36.0-45.0); Lymphocytes % 31.9 % (15.3-44.8); MCV 86.9 fL (80-100); MPV 9.7 fL (7.6-11.3); RBC Red Blood Cell Count 4.55 M/uL (3.86-4.86)
[2022-05-22 06:00] LABS: Potassium 3.7 mmol/L (3.5-5.1); Troponin High Sensitivity 4.5 pg/mL (<58.9)
--- NOTE | 2022-05-22 08:16 | RAD REPORT ---
EXAM DESCRIPTION: RAD - Chest Single View - 05/22/2022 6:19 am CLINICAL HISTORY: CHEST PAIN Chest pain. COMPARISON: No comparisons FINDINGS: Portable technique limits examination quality. The lungs are grossly clear. The heart is normal in size. No displaced fractures. IMPRESSION: No acute intrathoracic process suspected.
[2022-05-22] MEDS ORDERED: ASPIRIN EC 81 MG TAB PO ONE (08:54)
--- NOTE | 2022-05-22 09:35 | RAD REPORT ---
EXAM DESCRIPTION: CT - Thorax Wo Con CLINICAL HISTORY: Chest pain Chest pain, nonspecific COMPARISON: No comparisons FINDINGS: The lungs are clear. No pleural thickening or pleural effusion. No pneumothorax. No axillary, mediastinal or hilar adenopathy. No concerning bony finding. Cholecystectomy clips. All CT scans are performed using dose optimization technique as appropriate and may include automated exposure control or mA/KV adjustment according to patient size. IMPRESSION: Negative study.
--- NOTE | 2022-05-22 09:37 | RAD REPORT ---
EXAM DESCRIPTION: US - Extrem Venous W Compress Padilla - 05/22/2022 9:29 am CLINICAL HISTORY: Pain Bilateral leg edema and swelling. COMPARISON: No comparisons TECHNIQUE: Real-time sonographic interrogation of the left and right lower extremity deep venous sys tems was performed. FINDINGS: Normal compressibility, flow augmentation, phasic flow and spontaneous flow is identified in both the left and right lower extremity deep venous systems. IMPRESSION: No sonographic evidence of left or right lower extremity deep venous thrombosis.
--- NOTE | 2022-05-22 12:10 | ER ---
Nurse's Notes [facility] Name: Natalie Vickers Age: 46 yrs Sex: Female : 1975 Arrival Date: 05/22/2022 Time: 05:01 Bed 3 Private MD: Diagnosis: Chest pain, unspecified Presentation: 05/22 05:07 Chief complaint: Patient states: CHEST PAIN THAT IS WORSE WITH MOVEMENT. Coronavirus [facility] screen: Vaccine status: Patient reports receiving the 2nd dose of the covid vaccine. At this time, the client does not indicate any symptoms associated with coronavirus-19. Ebola Screen: Patient negative for fever greater than or equal to 101.5 degrees Fahrenheit, and additional compatible Ebola Virus Disease symptoms. Initial Sepsis Screen: Does the patient meet any 2 criteria? No. Patient's initial sepsis screen is negative. Does the patient have a suspected source of infection? No. Patient's initial sepsis screen is negative. Risk Assessment: Do you want to hurt yourself or someone else? Patient reports no desire to harm self or others. Onset of symptoms was May 22, 2022. 05:07 Method Of Arrival: Ambulatory [facility] 05:07 Acuity: FANY 3 [facility] Triage Assessment: 05:09 General: Appears in no apparent distress. uncomfortable, Behavior is calm, cooperative, [facility] appropriate for age. Pain: Complains of pain in anterior aspect of right upper chest, anterior aspect of left upper chest and mid-sternal area Pain currently is 7 out of 10 on a pain scale. Quality of pain is described as pressure, Pain began 1 hour ago. Aggravated by MOVEMENT. Cardiovascular: No deficits noted. 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 - Social history:: Smoking status: Patient denies any tobacco usage or history of. Screenin:30 Abuse screen: Denies threats or abuse. Denies injuries from another. Nutritional aa9 screening: No deficits noted. Tuberculosis screening: No symptoms or risk factors identified. Fall Risk None identified. Assessment: 05:30 General: Appears in no apparent distress. comfortable, Behavior is calm, cooperative. aa9 07:53 Reassessment: No changes from previously documented assessment. Patient is alert, jh6 oriented x 3, equal unlabored respirations, skin warm/dry/pink. Patient states feeling better. Patient states symptoms have improved. Pain: Complains of pain in anterior aspect of left upper chest and mid-sternal area Pain currently is 2 out of 10 on a pain scale. Quality of pain is described as heavy, shooting, Pain began suddenly, Is continuous, Aggravated by repositioning. 09:00 Reassessment: Patient and/or family updated on plan of care and expected duration. Pain jh6 level reassessed. Patient is alert, oriented x 3, equal unlabored respirations, skin warm/dry/pink. Patient denies pain at this time. 09:00 General: Appears in no apparent distress. Behavior is calm, cooperative. jh6 10:30 Reassessment: No changes from previously documented assessment. Patient is alert, jh6 oriented x 3, equal unlabored respirations, skin warm/dry/pink. waiting for test. pt unable to have ct scan with contrast due to allergy to dye. 12:00 Reassessment: No changes from previously documented assessment. Patient and/or family jg9 updated on plan of care and expected duration. Pain level reassessed. Patient is alert, oriented x 3, equal unlabored respirations, skin warm/dry/pink. Vital Signs: 05:07 BP 133 / 72; Pulse 82; Resp 20; Temp 98.3; Pulse Ox 98% on R/A; Weight 79.38 kg; Height bh1 5 ft. 3 in. (160.02 cm); Pain 0/10; 05:32 BP 133 / 102; Pulse 80; Resp 18 S; Pulse Ox 99% on R/A; as6 06:46 BP 124 / 83; Pulse 82; Resp 17; Pulse Ox 100% on R/A; kd3 07:55 BP 126 / 83; Pulse 80; Resp 16; Temp 98.2; Pulse Ox 100% ; Pain 2/10; jh6 10:41 BP 118 / 91; Pulse 61; Resp 18; Pulse Ox 100% ; mb7 11:00 BP 119 / 76; Pulse 65; Resp 14 S; Pulse Ox 100% on R/A; jg9 12:30 BP 126 / 74; Pulse 65; Resp 16 S; Pulse Ox 100% on R/A; jg9 05:07 Body Mass Index 31.00 (79.38 kg, 160.02 cm) 1 ED Course: 05:01 Patient arrived in ED. ja2 05:03 Claude Tenorio MD is Attending Physician. kdr 05:04 Benoit Jacobo, RN is Primary Nurse. as6 05:09 Triage completed. 1 05:09 Arm band placed on right wrist. 1 05:28 Inserted saline lock: 20 gauge in left antecubital area, using aseptic technique. Blood aa9 collected. 05:30 Patient has correct armband on for positive identification. aa9 06:20 XRAY Chest (1 view) In Process Unspecified. EDMS 06:47 No provider procedures requiring assistance completed. kd3 07:24 Attending Physician role handed off by Claude Tenorio MD lily 07:24 Cornelio Fajardo MD is Attending Physician. lily 09:19 CT Chest Wo Con In Process Unspecified. EDMS 09:[address] jh6 09:31 US Extremity Venous W Compression Padilla In Process Unspecified. EDMS 11:[address] via wheelchair. jh6 12:05 VQ scan (Nuclear Medicine) In Process Unspecified. EDMS 12:07 Patient moved back from CT. jh6 12:08 Carlin Sahni MD is Referral Physician. lily 12:42 IV discontinued. jg9 12:48 Primary Nurse role handed off by Benoit Jacobo, YVON bd 12:50 Marisel Delgado, YVON is Primary Nurse. jh6 Administered Medications: 12:40 Not Given (Patient Refused): Aspirin Chewable Tablet 162 mg PO once jg9 Medication: 06:47 VIS not applicable for this client. kd3 Outcome: 12:09 Discharge ordered by . lily 12:41 Discharged to home ambulatory. jg9 12:41 Condition: stable 12:41 Discharge instructions given to patient, Instructed on discharge instructions, follow up and referral plans. Demonstrated understanding of instructions, follow-up care, Prescriptions given X 3. 12:42 Patient left the ED. jg9 12:51 Patient left the ED. bd Signatures: Dispatcher [employer] EDMS Savanna Kumariara bd Scotty, Cornelio, MD MD lily Rittger, Claude, MD MD kdr Bruce, Arielle ja2 Slawson, Benoit, RN RN as6 Charisma Erazo RN RN kd3 Marisel Delgado, YVON RN jh6 Saundra, Little mb7 Marisel Reid, RN RN jg9 Jillian Bowling RN RN aa9 Lilli Beltre, YVON RN 1 Corrections: (The following items were deleted from the chart) 05:11 05:09 PMHx: PULMONARY [place]OL[place]; [place] [id number]
--- NOTE | 2022-05-22 12:10 | EDPHYS ---
Physician Documentation [facility] Name: Natalie Vickers Age: 46 yrs Sex: Female : 1975 Arrival Date: 05/22/2022 Time: 05:01 Bed 3 Private MD: ED Physician Cornelio Fajardo HPI: 05/22 05:47 This 46 yrs old Female presents to ER via Ambulatory with complaints of Chest kdr Pain. 05:47 The patient or guardian reports chest pain that is located primarily in the substernal kdr area, anterior chest wall, chest diffusely. Onset: suddenly, just prior to arrival. The pain does not radiate. Associated signs and symptoms: Pertinent positives: shortness of breath, Pertinent negatives: diaphoresis, lower extremity swelling, lightheadedness. 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 - Social history:: Smoking status: Patient denies any tobacco usage or history of. ROS: 05:47 Constitutional: Negative for fever, chills, and weight loss, Eyes: Negative for injury, kdr pain, redness, and discharge, ENT: Negative for injury, pain, and discharge, Neck: Negative for injury, pain, and swelling, Respiratory: Negative for shortness of breath, cough, wheezing, and pleuritic chest pain, Abdomen/GI: Negative for abdominal pain, nausea, vomiting, diarrhea, and constipation, Back: Negative for injury and pain, : Negative for injury, bleeding, discharge, and swelling, MS/Extremity: Negative for injury and deformity, Skin: Negative for injury, rash, and discoloration, Neuro: Negative for headache, weakness, numbness, tingling, and seizure activity. Psych: Negative for depression, anxiety, suicide ideation, homicidal ideation, and hallucinations, Allergy/Immunology: Negative for hives, rash, and allergies, Endocrine: Negative for neck swelling, polydipsia, polyuria, polyphagia, and marked weight changes, Hematologic/Lymphatic: Negative for swollen nodes, abnormal bleeding, and unusual bruising. 05:47 Cardiovascular: Positive for chest pain, Negative for edema, orthopnea, palpitations, paroxysmal nocturnal dyspnea, acute changes. Exam: 05:47 Constitutional: This is a well developed, well nourished patient who is awake, alert, kdr and in no acute distress. Head/Face: Normocephalic, atraumatic. Eyes: Pupils equal round and reactive to light, extra-ocular motions intact. Lids and lashes normal. Conjunctiva and sclera are non-icteric and not injected. Cornea within normal limits. Periorbital areas with no swelling, redness, or edema. Neck: Trachea midline, no thyromegaly or masses palpated, and no cervical lymphadenopathy. Supple, full range of motion without nuchal rigidity, or vertebral point tenderness. No Meningismus. Chest/axilla: Normal chest wall appearance and motion. Nontender with no deformity. No lesions are appreciated. Cardiovascular: Regular rate and rhythm with a normal S1 and S2. No gallops, murmurs, or rubs. Normal PMI, no JVD. No pulse deficits. Respiratory: Lungs have equal breath sounds bilaterally, clear to auscultation and percussion. No rales, rhonchi or wheezes noted. No increased work of breathing, no retractions or nasal flaring. Abdomen/GI: Soft, non-tender, with normal bowel sounds. No distension or tympany. No guarding or rebound. No evidence of tenderness throughout. Back: No spinal tenderness. No costovertebral tenderness. Full range of motion. Skin: Warm, dry with normal turgor. Normal color with no rashes, no lesions, and no evidence of cellulitis. MS/ Extremity: Pulses equal, no cyanosis. Neurovascular intact. Full, normal range of motion. Psych: Awake, alert, with orientation to person, place and time. Behavior, mood, and affect are within normal limits. 05:50 ECG was reviewed by the Attending Physician. kdr 12:50 ECG was reviewed by the Attending Physician. lily Vital Signs: 05:07 BP 133 / 72; Pulse 82; Resp 20; Temp 98.3; Pulse Ox 98% on R/A; Weight 79.38 kg; Height bh1 5 ft. 3 in. (160.02 cm); Pain 0/10; 05:32 BP 133 / 102; Pulse 80; Resp 18 S; Pulse Ox 99% on R/A; as6 06:46 BP 124 / 83; Pulse 82; Resp 17; Pulse Ox 100% on R/A; kd3 07:55 BP 126 / 83; Pulse 80; Resp 16; Temp 98.2; Pulse Ox 100% ; Pain 2/10; jh6 10:41 BP 118 / 91; Pulse 61; Resp 18; Pulse Ox 100% ; mb7 11:00 BP 119 / 76; Pulse 65; Resp 14 S; Pulse Ox 100% on R/A; jg9 12:30 BP 126 / 74; Pulse 65; Resp 16 S; Pulse Ox 100% on R/A; jg9 05:07 Body Mass Index 31.00 (79.38 kg, 160.02 cm) bh1 MDM: 07:24 Patient medically screened. lily 08:48 Differential diagnosis: abnormal EKG, acute myocardial infarction, acute pericarditis, lily anxiety, chest wall pain, hiatal hernia, pericarditis, pleurisy, pulmonary embolus, stable angina, thoracic aortic disection, unstable angina. HEART Score: History: Slightly Suspicious (0), ECG: Normal (0), Age: < or = 45 years (0), Risk Factors: 1 or 2 risk factors (1), [+ Family HX] [Obesity] Troponin: < or = 1 x Normal Limit (0). The patient was given aspirin in the Emergency Department. The patient's deep vein thrombosis risk score was calculated as follows: Total Score: 0. This patient was found to be at low risk for a deep vein thrombosis by using the Well's assessment criteria. The patient's pulmonary embolism risk score was calculated as follows: the patient has a history of a previous deep vein thrombosis or pulmonary embolism (1.5 Pts) Total Score: 0-2 points. This patient was found to be at low risk for a pulmonary embolism by using the Well's assessment criteria. JOSE DE JESUS Risk Score: TOTAL SCORE = 0. Data reviewed: vital signs, nurses notes, lab test result(s), EKG, radiologic studies, CT scan, doppler, plain films. Data interpreted: pvc monitor: rate is 80 beats/min, rhythm is regular, Pulse oximetry: on room air is 100 %. Counseling: I had a detailed discussion with the patient and/or guardian regarding: lab results, radiology results, the need for outpatient follow up. 05/22 05:03 Order name: Basic Metabolic Panel; Complete Time: 07:00 [facility] 05/22 05:03 Order name: CBC with Diff; Complete Time: 07:00 [facility] 05/22 05:03 Order name: Troponin HS; Complete Time: 07:00 [facility] 05/22 05:03 Order name: XRAY Chest (1 view); Complete Time: 08:26 [facility] 05/22 08:41 Order name: Troponin High Sensitivity: 9am; Complete Time: 11:13 [facility] 05/22 08:53 Order name: D-Dimer; Complete Time: 11:13 [facility] 05/22 05:03 Order name: EKG; Complete Time: 05:04 [facility] 05/22 05:03 Order name: Cardiac monitoring; Complete Time: 05:09 [facility] 05/22 08:43 Order name: US Extremity Venous W Compression [place]; Complete Time: 10:00 [facility] 05/22 08:53 Order name: CT Chest Wo Con; Complete Time: 10:00 [facility] 05/22 09:20 Order name: VQ scan (Nuclear Medicine) 05/22 10:05 Order name: EKG; Complete Time: 10:05 [facility] 05/22 05:03 Order name: EKG - Nurse/Tech; Complete Time: 05:28 [facility] 05/22 05:03 Order name: IV Saline Lock; Complete Time: 05:28 [facility] 05/22 05:03 Order name: Labs collected and sent; Complete Time: 05:28 [facility] 05/22 05:03 Order name: O2 Per Protocol; Complete Time: 05:09 [facility] 05/22 05:03 Order name: O2 Sat Monitoring; Complete Time: 05:09 [facility] 05/22 10:05 Order name: EKG - Nurse/Tech; Complete Time: 12:40 [facility] EC:50 Rate is 75 beats/min. Rhythm is regular, Sinus Rhythm with No ectopy. CT interval is kdr normal. QRS interval is normal. QT interval is normal. Clinical impression: NSR w/ Non-specific ST/T Changes. 12:50 Rate is 60 beats/min. Rhythm is regular. QRS [place] is Normal. CT interval is normal. QRS lily interval is normal. QT interval is normal. No Q waves. T waves are Normal. No ST changes noted. Clinical impression: Normal ECG and No evidence of ischemia. Interpreted by me. Reviewed by me. Administered Medications: 12:40 Not Given (Patient Refused): Aspirin Chewable Tablet 162 mg PO once jg9 Disposition Summary: 05/22/22 12:09 Discharge Ordered Location: Home lily Problem: new lily Symptoms: have improved lily Condition: Stable lily Diagnosis - Chest pain, unspecified lily Followup: lily - With: Private Physician - When: 2 - 3 days - Reason: Recheck today's complaints, Continuance of care, Re-evaluation by your physician Followup: lily - With: - When: 2 - 3 days - Reason: Recheck today's complaints, Continuance of care, Re-evaluation by your physician Discharge Instructions: - Discharge Summary Sheet lily - Nonspecific Chest Pain, Adult lily - Chest Wall Pain lily - Chest Wall Pain, [id number] lily - Nonspecific Chest Pain, Adult, [id number] lily - Aspirin and Your Heart lily Forms: - Medication Reconciliation Form lily - Thank You Letter lily - Antibiotic Education lily - Prescription Opioid Use [facility] Prescriptions: - Ibuprofen 600 mg Oral Tablet - take 1 tablet by ORAL route every 6 hours As needed take with food; 30 tablet; [facility] Refills: 0, Product Selection Permitted - Pepcid 20 mg Oral Tablet - take 1 tablet by ORAL route every 12 hours for 10 days; 20 tablet; Refills: 0, [facility] Product Selection Permitted - Tylenol-Codeine #3 300 mg-30 mg Oral - take 2 tablet by ORAL route every 6 hours; 20 tablet; Refills: 0, Product [facility] Selection Permitted Signatures: Dispatcher [employer] EDCornelio Donaldson MD MD cha Rittger, Kevin, MD MD kdr Hicks, Barbara RN RN [facility] Marisel Reid RN jg9 Corrections: (The following items were deleted from the chart) 05:11 05:09 PMHx: PULMONARY EBOLIS; [place] [id number] 09:18 08:43 Chest For PE Angio+CT.RAD.BRZ ordered. EDIA EDMS
--- NOTE | 2022-05-22 12:14 | RAD REPORT ---
EXAM DESCRIPTION: NM - Vent Perfusion VQ Scan - 05/22/2022 12:03 pm CLINICAL HISTORY: Chest pain COMPARISON: [facility] ONLY dated 09/26/2018 TECHNIQUE: 16.4mCi Xe-133 gas inhaled and 6.8mCi Tc-MAA IV. Planar ventilation scan was performed in posterior projection after Xe-133 gas inhalation (wash-in, e quilibrium, and wash-out phases) followed by perfusion scan with Tc-MAA IV in multiple projections. Examination is correlated with recent chest radiograph. FINDINGS: Normal ventilation with appropriate wash-out and no significant air-trapping. No mismatched segmental perfusion defect. IMPRESSION: Very low probability of acute pulmonary embolism.
--- NOTE | 2022-05-22 12:36 | EKG ---
Test Date: 2022-05-22 Test Time: 05:11:58 [employer] Clerk: KATTY MEASUREMENT RESULTS: Intervals: Rate: 75 CO: 142 QRSD: 76 QT: 372 QTc: 415 [place]: P: 32 CO: 142 QRS: 54 T: 48 INTERPRETIVE STATEMENTS: Normal sinus rhythm Cannot rule out Anterior infarct, age undetermined Abnormal ECG No previous ECG available for comparison Electronically Signed On 05-22-22 12:35:55 CDT by Sunny Walker
[2022-05-22 12:58] VITALS: O2SAT 100
[2022-05-22 13:00] VITALS: TEMP 98.2
[2022-05-22 13:05] VITALS: BP 126/74
--- NOTE | 2022-05-23 06:40 | EKG ---
Test Date: 2022-05-22 Test Time: 12:30:33 Commercial Banker: JETT MEASUREMENT RESULTS: Intervals: Rate: 60 DE: 124 QRSD: 72 QT: 376 QTc: 376 [place]: P: 49 DE: 124 QRS: 65 T: 63 INTERPRETIVE STATEMENTS: Normal sinus rhythm Normal ECG Compared to ECG 05/22/2022 05:11:58 Myocardial infarct finding no longer present Electronically Signed On 05-23-22 06:38:41 CDT by Carlin Sahni
== END 2022-05-22 12:51 | disposition home or self-care (01) ==
LOC: ER 04:57
DX: R07.89 Other chest pain (principal); Z85.41 Personal history of malignant neoplasm of cervix uteri; Z88.5 Allergy status to narcotic agent; Z88.8 Allergy status to other drugs, medicaments and biological substances; Z91.048 Other nonmedicinal substance allergy status
CPT/HCPCS: 93005 ×2; 85025; 80048; 36415; 85379; 84484 ×2; 71250; 71045; 93970; 78582; 99284; A9558; A9540

== ENCOUNTER 2024-06-30 12:22 | Emergency (ER) | payer OTHER ==
--- OUTSIDE RECORDS SUMMARY | 2024-06-30 12:28 | XMS REPORT | Continuity of Care Document ---
Author Name Unknown Address [address] [facility] [address] [place] [address] [facility] Address [address] [facility] 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 Name Role Phone [phone] Primary Care Physician Unavailab TIARRA Vaughan Attending Clinician Unavailable PARAM MONTELONGO Attending Clinician Unavailable SYSTEM, PROVIDER NOT IN Attending Clinician Unav ailable BALTAZAR WILKINSON Attending Clinician Unavailable AKBAR TATUM Attending Clinician Unavail able ULISES CALHOUN Attending Clinician Unavailable NICO MCDONOUGH Attending Clinician Elaine BIGG Ortiz Attending Clinician Unavailable LISA OLIVER Attending Clinician Unavailable JORDANA LANDEROS Attending Clinician Unava ilJordana Cueva MD Attending Clinician [phone] MARLEN COLLINS Attending Clinician Unavailable YANNI ARREAGA Attending Clinician Unavailable BART EDGAR Attending Clinician Unavail able KARMA ANGEL Attending Clinician Unavailable Tiarra Rick MD Attending Clinician [phone] MARY TORRES Attending Clinician Unavailable ALONDRA NOLAN Attending Clinician UnavailEYAL Gomes Attending Clinician Un available Jordana Foster RN Attending Clinician Unavailable [facility] Attending Clinician Unav ailable Ita Tyson Attending Clinician [phone] ITA TATUM Attending Clinician Unavailable TIARRA RICK Admitting Clinician Unavailable PARAM MONTELONGO Admitting Clinician Unavailable NELLY HERNANDEZ Admitting Clinician Unavailable Tiarra Rick MD Admitting Clinician [phone] ULISES CALHOUN Admitting Clinician Unavailable Payers Payer Name Policy Type Policy Number Effective Date Expirati on Date Source [place] POS [id number] 2020 00:00:00 [employer]ETNA HMO [id number] 2015 00:00:00 2020 00:00:00 AETNA CHOICE POS II [id number] 2019 00:00:00 [place] [id number] 2020 00:00:00 TPA AETNA GENERIC [id number] 2022 00:00:00 BCBS 2 [id number] 2021 00:00:00 Problems Condition Name Condition Details Condition Category Status Onset Date Resolution Date Last Treatment Date Treating Clinician Comments Source Osteopenia of necks of both femurs - Not Controlled Osteopenia of necks of both femurs - Not Controlled Disease Active 07-17 00:00: 00 Vero Orozco Obesity (BMI 30-39.9) Obesity (BMI 30-39.9) Disease Active 02-18 00:00: 00 [facility] Chest pain Chest pain Disease Active 02-18 00:00: 00 [facility] No known active problems No known active problems Disease Univers [facility] Allergies, Adverse Reactions, Alerts Allergy Name Allergy Type Status Severity Reaction(s) Onset Date Inactive Date Treating Clinician Comments Source IODINATE D CONTRAST MEDIA Drug Class Active Low Nausea 03-30 00:00: 00 MD Lisandra davis FENTANYL DRUG INGREDI Active 03-30 00:00: 00 MD Lisandra davis MORPHINE DRUG INGREDI Active 03-30 00:00: 00 MD Lisandra davis ONDANSET CELESTE DRUG INGREDI Active 03-30 00:00: 00 MD Lisandra davis PROCHLOR PERAZINE DRUG INGREDI Active 03-30 00:00: 00 MD Lisandra davis IODINATE D CONTRAST MEDIA Drug Class Active Low Nausea 03-30 00:00: 00 MD Lisandra davis FENTANYL DRUG INGREDI Active 03-30 00:00: 00 MD Lisandra davis MORPHINE DRUG INGREDI Active 03-30 00:00: 00 MD Lisandra davis ONDANSET CELESTE DRUG INGREDI Active 03-30 00:00: 00 MD Lisandra davis PROCHLOR PERAZINE DRUG INGREDI Active 03-30 00:00: 00 MD Lisandra davis IODINATE D CONTRAST MEDIA Drug Class Active Low Nausea 03-30 00:00: 00 MD Lisandra davis FENTANYL DRUG INGREDI Active 03-30 00:00: 00 MD Lisandra davis MORPHINE DRUG INGREDI Active 03-30 00:00: 00 MD Lisandra davis ONDANSET CELESTE DRUG INGREDI Active 03-30 00:00: 00 MD Lisandra davis PROCHLOR PERAZINE DRUG INGREDI Active 03-30 00:00: 00 MD Lisandra davis IODINATE D CONTRAST MEDIA Drug Class Active Low Nausea 03-30 00:00: 00 MD Lisandra davis FENTANYL DRUG INGREDI Active 03-30 00:00: 00 MD Lisandra davis MORPHINE DRUG INGREDI Active 03-30 00:00: 00 MD Lisandra davis ONDANSET CELESTE DRUG INGREDI Active 03-30 00:00: 00 MD Lisandra davis PROCHLOR PERAZINE DRUG INGREDI Active 03-30 00:00: 00 MD Lisandra davis IODINATE D CONTRAST MEDIA Drug Class Active Low Nausea 03-30 00:00: 00 MD Lisandra davis FENTANYL DRUG INGREDI Active 03-30 00:00: 00 MD Lisandra davis MORPHINE DRUG INGREDI Active 03-30 00:00: 00 MD Lisandra davis ONDANSET CELESTE DRUG INGREDI Active 03-30 00:00: 00 MD Lisandra davis PROCHLOR PERAZINE DRUG INGREDI Active 03-30 00:00: 00 MD Lisandra davis IODINATE D CONTRAST MEDIA Drug Class Active Low Nausea 03-30 00:00: 00 MD Lisandra davis FENTANYL DRUG INGREDI Active 03-30 00:00: 00 MD Lisandra davis MORPHINE DRUG INGREDI Active 03-30 00:00: 00 MD Lisandra davis ONDANSET CELESTE DRUG INGREDI Active 03-30 00:00: 00 MD Lisandra davis PROCHLOR PERAZINE DRUG INGREDI Active 03-30 00:00: 00 MD Lisandra davis IODINATE D CONTRAST MEDIA Drug Class Active Low Nausea 03-30 00:00: 00 MD Lisandra davis FENTANYL DRUG INGREDI Active 03-30 00:00: 00 MD Lisandra davis MORPHINE DRUG INGREDI Active 03-30 00:00: 00 MD Lisandra davis ONDANSET CELESTE DRUG INGREDI Active 03-30 00:00: 00 MD Lisadnra davis PROCHLOR PERAZINE DRUG INGREDI Active 03-30 00:00: 00 MD Lisandra davis IODINATE D CONTRAST MEDIA Drug Class Active Low Nausea 03-30 00:00: 00 MD Lisandra davis FENTANYL DRUG INGREDI Active 03-30 00:00: 00 MD Lisandra davis MORPHINE DRUG INGREDI Active 03-30 00:00: 00 MD Lisandra davis ONDANSET CELESTE DRUG INGREDI Active 03-30 00:00: 00 MD Lisandra davis PROCHLOR PERAZINE DRUG INGREDI Active 03-30 00:00: 00 MD Lisandra davis IODINATE D CONTRAST MEDIA Drug Class Active Low Nausea 03-30 00:00: 00 MD Lisandra davis FENTANYL DRUG INGREDI Active 03-30 00:00: 00 MD Lisandra davis MORPHINE DRUG INGREDI Active 03-30 00:00: 00 MD Lisandra davis ONDANSET CELESTE DRUG INGREDI Active 03-30 00:00: 00 MD Lisandra davis PROCHLOR PERAZINE DRUG INGREDI Active 03-30 00:00: 00 MD Lisandra davis IODINATE D CONTRAST MEDIA Drug Class Active Low Nausea 03-30 00:00: 00 MD Lisandra davis FENTANYL DRUG INGREDI Active 03-30 00:00: 00 MD Lisandra davis MORPHINE DRUG INGREDI Active 03-30 00:00: 00 MD Lisandra davis ONDANSET CELESTE DRUG INGREDI Active 03-30 00:00: 00 MD Lisandra davis PROCHLOR PERAZINE DRUG INGREDI Active 03-30 00:00: 00 MD Lisandra davis IODINATE D CONTRAST MEDIA Drug Class Active Low Nausea 03-30 00:00: 00 MD Lisandra davis FENTANYL DRUG INGREDI Active 03-30 00:00: 00 MD Lisandra davis MORPHINE DRUG INGREDI Active 03-30 00:00: 00 MD Lisandra davis ONDANSET CELESTE DRUG INGREDI Active 03-30 00:00: 00 MD Lisandra davis PROCHLOR PERAZINE DRUG INGREDI Active 03-30 00:00: 00 MD Lisandra davis IODINATE D CONTRAST MEDIA Drug Class Active Low Nausea 03-30 00:00: 00 MD Lisandra davis FENTANYL DRUG INGREDI Active 03-30 00:00: 00 MD Lisandar davis MORPHINE DRUG INGREDI Active 03-30 00:00: 00 MD Lisandra davis ONDANSET CELESTE DRUG INGREDI Active 03-30 00:00: 00 MD Lisandra davis PROCHLOR PERAZINE DRUG INGREDI Active 03-30 00:00: 00 MD Lisandra davis IODINATE D CONTRAST MEDIA Drug Class Active Low Nausea 03-30 00:00: 00 MD Lisandra davis FENTANYL DRUG INGREDI Active 03-30 00:00: 00 MD Lisandra davis MORPHINE DRUG INGREDI Active 03-30 00:00: 00 MD Lisandra davis ONDANSET CELESTE DRUG INGREDI Active 03-30 00:00: 00 MD Lisandra davis PROCHLOR PERAZINE DRUG INGREDI Active 03-30 00:00: 00 MD Lisandra davis IODINATE D CONTRAST MEDIA Drug Class Active Low Nausea 03-30 00:00: 00 MD Lisandra davis FENTANYL DRUG INGREDI Active 03-30 00:00: 00 MD Lisandra davis MORPHINE DRUG INGREDI Active 03-30 00:00: 00 MD Lisandra davis ONDANSET CELESTE DRUG INGREDI Active 03-30 00:00: 00 MD Lisandra davis PROCHLOR PERAZINE DRUG INGREDI Active 03-30 00:00: 00 MD Lisandra davis IODINATE D CONTRAST MEDIA Drug Class Active Low Nausea 03-30 00:00: 00 MD Lisandra davis FENTANYL DRUG INGREDI Active 03-30 00:00: 00 MD Lisandra davis MORPHINE DRUG INGREDI Active 03-30 00:00: 00 MD Lisandra davis ONDANSET CELESTE DRUG INGREDI Active 03-30 00:00: 00 MD Lisandra davis PROCHLOR PERAZINE DRUG INGREDI Active 03-30 00:00: 00 MD Lisandra davis IODINATE D CONTRAST MEDIA Drug Class Active Low Nausea 03-30 00:00: 00 MD Lisandra davis FENTANYL DRUG INGREDI Active 03-30 00:00: 00 MD Lisandra davis MORPHINE DRUG INGREDI Active 03-30 00:00: 00 MD Lisandra davis ONDANSET CELESTE DRUG INGREDI Active 03-30 00:00: 00 MD Lisandra davis PROCHLOR PERAZINE DRUG INGREDI Active 03-30 00:00: 00 MD Lisandra davis IODINATE D CONTRAST MEDIA Drug Class Active Low Nausea 03-30 00:00: 00 MD Lisandra davis FENTANYL DRUG INGREDI Active 03-30 00:00: 00 MD Lisandra davis MORPHINE DRUG INGREDI Active 03-30 00:00: 00 MD Lisandra davis ONDANSET CELESTE DRUG INGREDI Active 03-30 00:00: 00 MD Lisandra davis PROCHLOR PERAZINE DRUG INGREDI Active 03-30 00:00: 00 MD Lisandra davis IODINATE D CONTRAST MEDIA Drug Class Active Low Nausea 03-30 00:00: 00 MD Lisandra davis FENTANYL DRUG INGREDI Active 03-30 00:00: 00 MD Lisandra davis MORPHINE DRUG INGREDI Active 03-30 00:00: 00 MD Lisandra davis ONDANSET CELESTE DRUG INGREDI Active 03-30 00:00: 00 MD Lisandra davis PROCHLOR PERAZINE DRUG INGREDI Active 03-30 00:00: 00 MD Lisandra davis IODINATE D CONTRAST MEDIA Drug Class Active Low Nausea 03-30 00:00: 00 MD Lisandra davis FENTANYL DRUG INGREDI Active 03-30 00:00: 00 MD Lisandra davis MORPHINE DRUG INGREDI Active 03-30 00:00: 00 MD Lisandra davis ONDANSET CELESTE DRUG INGREDI Active 03-30 00:00: 00 MD Lisandra davis PROCHLOR PERAZINE DRUG INGREDI Active 03-30 00:00: 00 MD Lisandra davis IODINATE D CONTRAST MEDIA Drug Class Active Low Nausea 03-30 00:00: 00 MD Lisandra davis FENTANYL DRUG INGREDI Active 03-30 00:00: 00 MD Lisandra davis MORPHINE DRUG INGREDI Active 03-30 00:00: 00 MD Lisandra davis ONDANSET CELESTE DRUG INGREDI Active 03-30 00:00: 00 MD Lisandra davis PROCHLOR PERAZINE DRUG INGREDI Active 03-30 00:00: 00 MD Lisandra davis IODINATE D CONTRAST MEDIA Drug Class Active Low Nausea 03-30 00:00: 00 MD Lisandra davis FENTANYL DRUG INGREDI Active 03-30 00:00: 00 MD Lisandra davis MORPHINE DRUG INGREDI Active 03-30 00:00: 00 MD Lisandra davis ONDANSET CELESTE DRUG INGREDI Active 03-30 00:00: 00 MD Lisandra davis PROCHLOR PERAZINE DRUG INGREDI Active 03-30 00:00: 00 MD Lisandra davis IODINATE D CONTRAST MEDIA Drug Class Active Low Nausea 03-30 00:00: 00 MD Lisandra davis FENTANYL DRUG INGREDI Active 03-30 00:00: 00 MD Lisandra davis MORPHINE DRUG INGREDI Active 03-30 00:00: 00 MD Lisandra davis ONDANSET CELESTE DRUG INGREDI Active 03-30 00:00: 00 MD Lisandra davis PROCHLOR PERAZINE DRUG INGREDI Active 03-30 00:00: 00 MD Lisandra davis IODINATE D CONTRAST MEDIA Drug Class Active Low Nausea 03-30 00:00: 00 MD Lisandra davis FENTANYL DRUG INGREDI Active 03-30 00:00: 00 MD Lisandra davis MORPHINE DRUG INGREDI Active 03-30 00:00: 00 MD Lisandra davis ONDANSET CELESTE DRUG INGREDI Active 03-30 00:00: 00 MD Lisandra davis PROCHLOR PERAZINE DRUG INGREDI Active 03-30 00:00: 00 MD Lisandra davis IODINATE D CONTRAST MEDIA Drug Class Active Low Nausea 03-30 00:00: 00 MD Lisandra davis FENTANYL DRUG INGREDI Active 03-30 00:00: 00 MD Lisandra davis MORPHINE DRUG INGREDI Active 03-30 00:00: 00 MD Lisandra davis ONDANSET CELESTE DRUG INGREDI Active 03-30 00:00: 00 MD Lisandra davis PROCHLOR PERAZINE DRUG INGREDI Active 03-30 00:00: 00 MD Lisandra davis IODINATE D CONTRAST MEDIA Drug Class Active Low Nausea 03-30 00:00: 00 MD Lisandra davis FENTANYL DRUG INGREDI Active 03-30 00:00: 00 MD Lisandra davis MORPHINE DRUG INGREDI Active 03-30 00:00: 00 MD Lisandra davis ONDANSET CELESTE DRUG INGREDI Active 03-30 00:00: 00 MD Lisandra davis PROCHLOR PERAZINE DRUG INGREDI Active 03-30 00:00: 00 MD Lisandra davis IODINATE D CONTRAST MEDIA Drug Class Active Low Nausea 03-30 00:00: 00 MD Lisandra davis FENTANYL DRUG INGREDI Active 03-30 00:00: 00 MD Lisandra davis MORPHINE DRUG INGREDI Active 03-30 00:00: 00 MD Lisandra davis ONDANSET CELESTE DRUG INGREDI Active 03-30 00:00: 00 MD Lisandra davis PROCHLOR PERAZINE DRUG INGREDI Active 03-30 00:00: 00 MD Lisandra davis IODINATE D CONTRAST MEDIA Drug Class Active Low Nausea 03-30 00:00: 00 MD Lisandra davis FENTANYL DRUG INGREDI Active 03-30 00:00: 00 MD Lisandra davis MORPHINE DRUG INGREDI Active 03-30 00:00: 00 MD Lisandra davis ONDANSET CELESTE DRUG INGREDI Active 03-30 00:00: 00 MD Lisandra davis PROCHLOR PERAZINE DRUG INGREDI Active 03-30 00:00: 00 MD Lisandra davis IODINATE D CONTRAST MEDIA Drug Class Active Low Nausea 03-30 00:00: 00 MD Lisandra davis FENTANYL DRUG INGREDI Active 03-30 00:00: 00 MD Lisandra davis MORPHINE DRUG INGREDI Active 03-30 00:00: 00 MD Lisandra davis ONDANSET CELESTE DRUG INGREDI Active 03-30 00:00: 00 MD Lisandra davis PROCHLOR PERAZINE DRUG INGREDI Active 03-30 00:00: 00 MD Lisandra davis IODINATE D CONTRAST MEDIA Drug Class Active Low Nausea 03-30 00:00: 00 MD Lisandra davis FENTANYL DRUG INGREDI Active 03-30 00:00: 00 MD Lisandra davis MORPHINE DRUG INGREDI Active 03-30 00:00: 00 MD Lisandra davis ONDANSET CELESTE DRUG INGREDI Active 03-30 00:00: 00 MD Lisandra davis PROCHLOR PERAZINE DRUG INGREDI Active 03-30 00:00: 00 MD Lisandra davis IODINATE D CONTRAST MEDIA Drug Class Active Low Nausea 03-30 00:00: 00 MD Lisandra davis FENTANYL DRUG INGREDI Active 03-30 00:00: 00 MD Lisandra davis MORPHINE DRUG INGREDI Active 03-30 00:00: 00 MD Lisandra davis ONDANSET CELESTE DRUG INGREDI Active 03-30 00:00: 00 MD Lisandra davis PROCHLOR PERAZINE DRUG INGREDI Active 03-30 00:00: 00 MD Lisandra davis IODINATE D CONTRAST MEDIA Drug Class Active Low Nausea 03-30 00:00: 00 MD Lisandra davis FENTANYL DRUG INGREDI Active 03-30 00:00: 00 MD Lisandra davis MORPHINE DRUG INGREDI Active 03-30 00:00: 00 MD Lisandra davis ONDANSET CELESTE DRUG INGREDI Active 03-30 00:00: 00 MD Lisandra davis PROCHLOR PERAZINE DRUG INGREDI Active 03-30 00:00: 00 MD Lisandra davis IODINATE D CONTRAST MEDIA Drug Class Active Low Nausea 03-30 00:00: 00 MD Lisandra davis FENTANYL DRUG INGREDI Active 03-30 00:00: 00 MD Lisandra davis MORPHINE DRUG INGREDI Active 03-30 00:00: 00 MD Lisandra davis ONDANSET CELESTE DRUG INGREDI Active 03-30 00:00: 00 MD Lisandra davis PROCHLOR PERAZINE DRUG INGREDI Active 03-30 00:00: 00 MD Lisandra davis IODINATE D CONTRAST MEDIA Drug Class Active Low Nausea 03-30 00:00: 00 MD Lisandra davis FENTANYL DRUG INGREDI Active 03-30 00:00: 00 MD Lisandra davis MORPHINE DRUG INGREDI Active 03-30 00:00: 00 MD Lisandra davis ONDANSET CELESTE DRUG INGREDI Active 03-30 00:00: 00 MD Lisandra davis PROCHLOR PERAZINE DRUG INGREDI Active 03-30 00:00: 00 MD Lisandra davis IODINATE D CONTRAST MEDIA Drug Class Active Low Nausea 03-30 00:00: 00 MD Lisandra davis FENTANYL DRUG INGREDI Active 03-30 00:00: 00 MD Lisandra davis MORPHINE DRUG INGREDI Active 03-30 00:00: 00 MD Lisandra davis ONDANSET CELESTE DRUG INGREDI Active 03-30 00:00: 00 MD Lisandra davis PROCHLOR PERAZINE DRUG INGREDI Active 03-30 00:00: 00 MD Lisandra davis IODINATE D CONTRAST MEDIA Drug Class Active Low Nausea 03-30 00:00: 00 MD Lisandra davis FENTANYL DRUG INGREDI Active Hives 03-30 00:00: 00 MD Lisandra davis ONDANSET CELESTE DRUG INGREDI Active Hives 03-30 00:00: 00 MD Lisandra davis PROCHLOR PERAZINE DRUG INGREDI Active Hives 03-30 00:00: 00 MD Lisandra davis IODINATE D CONTRAST MEDIA Drug Class Active Low Nausea 03-30 00:00: 00 MD Lisandra davis MORPHINE DRUG INGREDI Active Low Rash 03-30 00:00: 00 MD Lisandra davis FENTANYL DRUG INGREDI Active Hives 03-30 00:00: 00 MD Lisandra davis ONDANSET CELESTE DRUG INGREDI Active Hives 03-30 00:00: 00 MD Lisandra davis PROCHLOR PERAZINE DRUG INGREDI Active Hives 03-30 00:00: 00 MD Lisandra davis IODINATE D CONTRAST MEDIA Drug Class Active Low Nausea 03-30 00:00: 00 MD Lisandra davis MORPHINE DRUG INGREDI Active Low Rash 03-30 00:00: 00 MD Lisandra davis FENTANYL DRUG INGREDI Active Hives 03-30 00:00: 00 MD Lisandra davis ONDANSET CELESTE DRUG INGREDI Active Hives 03-30 00:00: 00 MD Lisandra davis PROCHLOR PERAZINE DRUG INGREDI Active Hives 03-30 00:00: 00 MD Lisandra davis IODINATE D CONTRAST MEDIA Drug Class Active Low Nausea 03-30 00:00: 00 MD Lisandra davis MORPHINE DRUG INGREDI Active Low Rash 03-30 00:00: 00 MD Lisandra davis FENTANYL DRUG INGREDI Active Hives 03-30 00:00: 00 MD Lisandra davis ONDANSET CELESTE DRUG INGREDI Active Hives 03-30 00:00: 00 MD Lisandra davis PROCHLOR PERAZINE DRUG INGREDI Active Hives 03-30 00:00: 00 MD Lisandra davis IODINATE D CONTRAST MEDIA Drug Class Active Low Nausea 03-30 00:00: 00 MD Lisandra davis MORPHINE DRUG INGREDI Active Low Rash 03-30 00:00: 00 MD Lisandra davis FENTANYL DRUG INGREDI Active Hives 03-30 00:00: 00 MD Lisandra davis ONDANSET CELESTE DRUG INGREDI Active Hives 03-30 00:00: 00 MD Lisandra davis PROCHLOR PERAZINE DRUG INGREDI Active Hives 03-30 00:00: 00 MD Lisandra davis IODINATE D CONTRAST MEDIA Drug Class Active Low Nausea 03-30 00:00: 00 MD Lisandra davis MORPHINE DRUG INGREDI Active Low Rash 03-30 00:00: 00 MD Lisandra davis FENTANYL DRUG INGREDI Active Hives 03-30 00:00: 00 MD Lisandra davis ONDANSET CELESTE DRUG INGREDI Active Hives 03-30 00:00: 00 MD Lisandra davis PROCHLOR PERAZINE DRUG INGREDI Active Hives 03-30 00:00: 00 MD Lisandra davis IODINATE D CONTRAST MEDIA Drug Class Active Low Nausea 03-30 00:00: 00 MD Lisandra davis MORPHINE DRUG INGREDI Active Low Rash 03-30 00:00: 00 MD Lisandra davis FENTANYL DRUG INGREDI Active Hives 03-30 00:00: 00 MD Lisandra davis ONDANSET CELESTE DRUG INGREDI Active Hives 03-30 00:00: 00 MD Lisandra davis PROCHLOR PERAZINE DRUG INGREDI Active Hives 03-30 00:00: 00 MD Lisandra davis IODINATE D CONTRAST MEDIA Drug Class Active Low Nausea 03-30 00:00: 00 MD Lisandra davis MORPHINE DRUG INGREDI Active Low Rash 03-30 00:00: 00 MD Lisandra davis FENTANYL DRUG INGREDI Active Hives 03-30 00:00: 00 MD Lisandra davis ONDANSET CELESTE DRUG INGREDI Active Hives 03-30 00:00: 00 MD Lisandra davis PROCHLOR PERAZINE DRUG INGREDI Active Hives 03-30 00:00: 00 MD Lisandra davis IODINATE D CONTRAST MEDIA Drug Class Active Low Nausea 03-30 00:00: 00 MD Lisandra davis MORPHINE DRUG INGREDI Active Low Rash 03-30 00:00: 00 MD Lisandra davis FENTANYL DRUG INGREDI Active Hives 03-30 00:00: 00 MD Lisandra davis ONDANSET CELESTE DRUG INGREDI Active Hives 03-30 00:00: 00 MD Lisandra davis PROCHLOR PERAZINE DRUG INGREDI Active Hives 03-30 00:00: 00 MD Lisandra davis IODINATE D CONTRAST MEDIA Drug Class Active Low Nausea 03-30 00:00: 00 MD Lisandra davis MORPHINE DRUG INGREDI Active Low Rash 03-30 00:00: 00 MD Lisandra davis FENTANYL DRUG INGREDI Active 03-30 00:00: 00 MD Lisandra davis IODINATE D CONTRAST MEDIA Drug Class Active 03-30 00:00: 00 MD Lisandra davis MORPHINE DRUG INGREDI Active 03-30 00:00: 00 MD Lisandra davis ONDANSET CELESTE DRUG INGREDI Active 03-30 00:00: 00 MD Lisandra davis PROCHLOR PERAZINE DRUG INGREDI Active 03-30 00:00: 00 MD Lisandra davis FENTANYL DRUG INGREDI Active 03-30 00:00: 00 MD Lisandra davis IODINATE D CONTRAST MEDIA Drug Class Active 03-30 00:00: 00 MD Lisandra davis MORPHINE DRUG INGREDI Active 03-30 00:00: 00 MD Lisandra davis ONDANSET CELESTE DRUG INGREDI Active 03-30 00:00: 00 MD Lisandra davis PROCHLOR PERAZINE DRUG INGREDI Active 03-30 00:00: 00 MD Lisandra davis FENTANYL DRUG INGREDI Active 03-30 00:00: 00 MD Lisandra davis MORPHINE DRUG INGREDI Active 03-30 00:00: 00 MD Lisandra davis ONDANSET CELESTE DRUG INGREDI Active 03-30 00:00: 00 MD Lisandra davis PROCHLOR PERAZINE DRUG INGREDI Active 03-30 00:00: 00 MD Lisandra davis Fentanyl Citrate Propensi ty to adverse reaction s Active Anaphylaxis 03-30 00:00: 00 Vero Orozco Iodinate d Contrast Propensi ty to adverse reaction s Active Anaphylaxis 03-30 00:00: 00 SHE HAD A CODE BLUE AT [facility] WHEN THEY GAVE IT TO HER LAST TIME, AND SHE COULD NOT BREATH. She has tolerated iodinated contrast on multiple occasions with premedica tion.Pt vomited x1 from IV Iodine contrast infusion and is willing to proceed without any premedica tion, notified and said okay to proceed w/o premedica tionSHE HAD A CODE BLUE AT [facility] WHEN THEY GAVE IT TO HER LAST TIME, AND SHE COULD NOT BREATH. She has tolerated iodinated contrast on multiple occasions with premedica tion.Pt vomited x1 from IV Iodine contrast infusion and is willing to proceed without any premedica tion, notified and said okay to proceed w/o premedica tion Vero Orozco Morphine Propensi ty to adverse reaction s Active Hives 03-30 00:00: 00 Vero Orozco Ondanset celeste Propensi ty to adverse reaction s Active Hives 03-30 00:00: 00 Vero Orozco FENTANYL DRUG INGREDI Active Anaphylaxis 03-30 00:00: 00 [facility] IODINATE D CONTRAST MEDIA Drug Class Active Anaphylaxis 03-30 00:00: 00 [facility] MORPHINE DRUG INGREDI Active Hives 03-30 00:00: 00 [facility] ONDANSET CELESTE DRUG INGREDI Active Hives 03-30 00:00: 00 [facility] PROCHLOR PERAZINE DRUG INGREDI Active Hives 03-30 00:00: 00 [facility] Iodinate d Contrast Media Propensi ty to adverse reaction s Active Anaphylaxis 03-30 00:00: 00 SHE HAD A CODE BLUE AT [facility] WHEN THEY GAVE IT TO HER LAST TIME, AND SHE COULD NOT BREATH. She has tolerated iodinated contrast on multiple occasions with premedica tion. [facility] Prochlor perazine Edisylat e Propensi ty to adverse reaction s Active Hives 03-30 00:00: 00 Vero Orozco NO KNOWN ALLERGIE S Drug Class Active [facility] Social History Social Habit Start Date Stop Date Quantity Comments Source Exposure to SARS-CoV-2 (event) Not sure Vero Orozco Tobacco use and exposure 2021-02-18 00:00:00 2021-02-18 00:00:00 Never used [facility] Alcohol intake 2021-02-18 00:00:00 2021-02-18 00:00:00 Ex-drinker (finding) [facility] Sex Assigned At 1975 00:00:00 1975 00:00:00 Vero Orozco Smoking Status Start Date Stop Date Source Never smoker [facility] Medications Ordered Medication Name Filled Medication Name Start Date Stop Date Current Medication? Ordering Clinician Indication Dosage Frequency Signature (SIG) Comments Components Source Cholecalcif jesse (Vitamin D3) 1.25 MG (59237 UT) oral Capsule 07-17 16:46: 30 Yes Take by mouth 2 times daily Vero Orozco Zinc 10 MG mouth/throa t Lozenge 07-17 16:46: 30 Yes Take by mouth daily Vero Orozco Cyanocobala min 500 MCG oral Tablet 07-17 16:46: 30 Yes 500ug Take 500 mcg by mouth daily Vero Orozco Hydroxychlo roquine Sulfate 200 MG oral Tablet 07-17 16:46: 30 Yes 200mg Take 200 mg by mouth 2 times daily Vero Orozco Meloxicam 15 MG oral Tablet 07-17 16:46: 30 Yes 15mg Take 15 mg by mouth as needed Vero Orozco Multiple Vitamin (Multi-Christina min) oral Tablet 07-17 16:46: 30 Yes 1{tbl} Take 1 tablet by mouth daily Vero Orozco Alendronate Sodium 5 MG oral Tablet 07-17 00:00: 00 Yes [id number] 5mg Take 1 tablet (5 mg total) by mouth every morning (before breakfast) Vero Orozco Lisdexamfet amine Dimesylate (Vyvanse) 30 MG oral Capsule 07-17 00:00: 00 Yes [id number] 30mg Take 1 capsule (30 mg total) by mouth every morning Vero Orozco Gabapentin 100 MG oral Capsule 05-16 00:00: 00 08-15 04:59 :00 No 300mg Take 300 mg by mouth nightly Vero Orozco Pantoprazol e Sodium 40 MG oral Tablet Delayed Response 02-20 00:00: 00 Yes 40mg Take 40 mg by mouth daily (with breakfast) Vero Orozco Sucralfate 1 g oral Tablet 02-20 00:00: 00 Yes 1000mg Take 1,000 mg by mouth 4 times daily Vero Orozco famotidine (PEPCID AC) tablet 20 mg 02-19 01:00: 00 Yes 20mg 20 mg, Oral, BID, First dose on 02/18/21 at 2000, Until Discontinu ed, Routine [facility] multivit-mi n-ferrous fumarate 9 mg iron/15 mL Liqd 02-18 22:00: 51 02-18 00:00 :00 No Take by mouth. [facility] hydroxychlo roquine sulfate (PLAQUENIL ORAL) 02-18 22:00: 51 02-18 00:00 :00 No 200mg Take 200 mg by mouth 2 (two) times daily. [facility] ergocalcife rol, vitamin D2, (VITAMIN D ORAL) 02-18 22:00: 51 02-18 00:00 :00 No Take by mouth 2 (two) times daily. [facility] meloxicam 15 mg TbDL 02-18 22:00: 51 02-18 00:00 :00 No 15mg Take 15 mg by mouth daily. [facility] predniSONE (DELTASONE) tablet 50 mg 02-18 17:00: 00 02-19 10:59 :00 No 50mg 50 mg, Oral, Q6H, 3 doses, First dose on 02/18/21 at 1200, Last dose on 02/19/21 at 0000, Routine [facility] enoxaparin (LOVENOX) injection 90 mg 02-18 15:45: 00 Yes 1mg/kg 90 mg (rounded from 87 mg = 1 mg/kg ?87 kg), Subcutaneo us, Q12H, First dose (after last modificati on) on 02/18/21 at 1045, Until Discontinu ed, Routine [facility] HYDROcodone -acetaminop hen (NORCO) 10-325 mg tablet 1 tablet 02-18 14:32: 39 Yes 1{tbl} 1 tablet, Oral, Q6HPRN, Starting 02/18/21 at 0932, Until Discontinu ed, Routine, Pain (scale 4-6) [facility] meloxicam (MOBIC) tablet 15 mg 02-18 14:00: 00 Yes 15mg 15 mg, Oral, DAILY, First dose on 02/18/21 at 0900, Until Discontinu ed [facility] aspirin chewable tablet 81 mg 02-18 14:00: 00 Yes 81mg 81 mg, Oral, DAILY, First dose on 02/18/21 at 0900, Until Discontinu ed, Routine [facility] diphenhydrA MINE (BENADRYL) tablet 50 mg 02-18 13:46: 52 Yes 50mg 50 mg, Oral, SEE-INSTRU CTIONS, 1 dose, Starting 02/18/21 at 0846, Until Discontinu ed, Routine [facility] hydrOXYchlo roQUINE (PLAQUENIL) tablet 200 mg 02-18 13:00: 00 Yes 200mg 200 mg, Oral, BID, First dose on 02/18/21 at 0800, Until Discontinu ed
Zuleyma cation: Rheumatic disorder [facility] maalox:diph enhydrAMINE :lidocaine 2 % viscous 1:1:1 (FIRST-MOUT HWASH BLM) oral suspension 15 mL 02-18 12:15: 00 02-18 13:59 :00 No 15mL 15 mL, Oral, ONCE, 1 dose, 02/18/21 at 0715, Routine [facility] acetaminoph en (TYLENOL) tablet 650 mg 02-18 10:07: 04 Yes 650mg 650 mg, Oral, Q6HPRN, Starting 02/18/21 at 0507, Until Discontinu ed, Routine, Pain (scale 1-3) [facility] multivit-mi n-ferrous fumarate 9 mg iron/15 mL Liqd 05 19:10: 45 Yes Take by mouth. [facility] Vital Signs Vital Name Observation Time Observation Value Comments S ource Systolic blood pressure 2021-07-17 21:39:00 114 mm[Hg] Vero penny Diastolic blood pressure 2021-07-17 21:39:00 76 mm[Hg] [facility] Heart rate 2021-07-17 21:39:00 109 /min Anthony Orozco Body temperature 2021-07-17 21:39:00 36.39 Clarisse Vero Orozco Respiratory rate 2021-07-17 21:39:00 20 /min Vero Orozco Body height 2021-07-17 21:39:00 160 cm Nhi Orozco Body weight 2021-07-17 21:39:00 86.274 kg Nhi Orozco BMI 2021-07-17 21:39:00 33.69 kg/m2 Nhi Orozco HEIGHT 2021-02-18 18:13:09 158.5 cm WEIGHT 2021-02-18 18:13:09 86.2 kg Systolic blood pressure 2021-02-18 16:22:00 115 mm[Hg] [facility] Diastolic blood pressure 2021-02-18 16:22:00 79 mm[Hg] [facility] Heart rate 2021-02-18 16:22:00 80 /min [facility] Body temperature 2021-02-18 16:22:00 36.44 Clarisse [facility] Respiratory rate 2021-02-18 16:22:00 16 /min [facility] Oxygen saturation in Arterial blood by Pulse oximetry 2021-02-18 16:22:00 91 /min [facility] Body height 2021-02-18 09:00:[address] [facility] Body weight 2021-02-18 09:00:[address] [facility] BMI 2021-02-18 09:00:00 33.98 kg/m2 [facility] WEIGHT 2021-02-09 09:04:00 87.5 kg WEIGHT 2021-01-25 07:07:00 85.2 kg WEIGHT 2021-01-19 11:07:00 87.3 kg WEIGHT 2021-01-12 09:04:00 86.8 kg HEIGHT 2021-01-05 13:21:00 158.5 cm WEIGHT 2021-01-05 13:21:00 85.9 kg HEIGHT 2020-08-23 10:12:02 158.5 cm WEIGHT 2020-08-23 10:12:02 81.6 kg HEIGHT 2020-05-05 00:00:00 158.5 cm WEIGHT 2020-05-05 00:00:00 84 kg HEIGHT 2020-04-26 00:00:00 158.5 cm WEIGHT 2020-04-26 00:00:00 83.3 kg Systolic blood pressure 2020-03-01 19:14:00 131 mm[Hg] [facility] Diastolic blood pressure 2020-03-01 19:14:00 92 mm[Hg] [facility] Heart rate 2020-03-01 19:07:00 120 /min [facility] Body temperature 2020-03-01 19:07:00 38.44 Clarisse [facility] Respiratory rate 2020-03-01 19:07:00 18 /min [facility] Body height 2020-03-01 19:07:[address] [facility] Body weight 2020-03-01 19:07:[address] [facility] BMI 2020-03-01 19:07:00 31.53 kg/m2 [facility] Oxygen saturation in Arterial blood by Pulse oximetry 2020-03-01 19:07:00 99 /min [facility] Procedures Procedure Date / Time Performed Performing Clinician Source TROPONIN I 2021-02-18 10:54:00 Justyna Higgins [facility] THYROID STIMULATING HORMONE 2021-02-18 10:54:00 Prabhjot [facility] HEPATIC FUNCTION PANEL (38676) (ALB,T.PRO,BILI T,BU/BC,ALT,AST,ALK PHOS) 2021-02-18 10:54:00 Prabhjot [facility] BASIC METABOLIC PANEL (NA, K, CL, CO2, GLUCOSE, BUN, CREATININE, CA) 2021-02-18 10:54:00 Prabhjot [facility] LIPID PANEL (79430)(TOTAL CHOLESTEROL, TRIGLYCERIDES, HDL) 2021-02-18 10:54:00 Prabhjot [facility] CBC WITH DIFF 2021-02-18 10:54:00 [facility]iarra Rick [facility] GLYCOSYLATED HEMOGLOBIN (A1C) 2021-02-18 10:54[facility] 2021-02-18 10:54:00 Isma Rick [facility] D-DIMER 2021-02-18 10:54:00 Tiarra Rick [facility] ACTIVATED PARTIAL THRMPLAS ROCKY 2021-02-18 10:54[facility] 2021-02-18 10:54:00 Justyna Higgins [facility] POCT URINALYSIS 2020-03-01 00:00:00 Ita Tatum [facility] Encounters Start Date/Time End Date/Time Encounter Type Admission Type Attending [facility] Care Department Encounter ID Source 2021-11-30 18:04:38 Outpatient ROMI MDA [id number] MD Lisandra davis 2021-11-30 18:04:38 Outpatient ROMI MDA [id number] MD Lisandra davis 2021-11-30 18:04:38 Outpatient ROMI MDA [id number] MD Lisandra davis 2021-08-27 15:02:07 Inpatient U MERRICKCHYNAZAKTIARRA [facility] [id number] [facility] 2021-08-18 17:00:56 Outpatient PARAM MONTELONGO MDA Ale/Hep/Nu t [id number] MD Lisandra davis 2021-04-20 12:43:19 Outpatient SYSTEM, PROVIDER MDA MDA [id number] MD Lisandra davis 2020-05-17 14:35:34 Outpatient BALTAZAR WILKINSON MDA MDA [id number] MD Lisandra davis 2020-05-06 10:32:42 Outpatient AKBAR TATUM MDA MDA [id number] MD Lisandra davis 2023-11-07 13:00:00 2023-11-07 23:59:00 Outpatient ULISES TOSCANO MDA MDA [id number] MD Lisandra davis 2023-11-07 17:00:08 2023-11-07 17:00:08 Outpatient NICO ALVARENGA MDA MDA [id number] MD Lisandra davis 2023-11-07 15:47:58 2023-11-07 16:55:29 Outpatient NICO ALVARENGA MDA MDA [id number] MD Lisandra davis 2023-11-01 16:15:00 2023-11-01 23:59:00 Outpatient BIGG BARR MDA MDA [id number] MD Lisandra davis 2023-11-01 14:32:56 2023-11-01 16:23:02 Outpatient BIGG BARR MDA MDA [id number] MD Lisandra davis 2023-01-10 09:30:00 2023-01-10 23:59:00 Outpatient ARLENE ULISES CALHOUN MDA MDA [id number] MD Lisandra davis 2023-01-10 08:00:00 2023-01-10 09:29:00 Outpatient ARLENE OLIVER LISA MDA MDA [id number] MD Lisandra davis 2023-01-07 06:00:00 2023-01-07 23:59:00 Outpatient ARLENE OLIVER LISA MDA MDA [id number] MD Lisandra davis 2022-05-14 09:57:45 2022-05-14 23:59:00 Outpatient ARLENE ULISES CALHOUN MDA MDA [id number] MD Lisandra davis 2022-05-14 07:51:04 2022-05-14 07:51:04 Outpatient ULISES TOSCANO MDA MDA [id number] MD Lisandra davis 2021-09-18 09:00:00 2021-09-18 23:59:00 Outpatient ULISES TOSCANO MDA MDA [id number] MD Lisandra davis 2021-09-18 16:30:00 2021-09-18 16:30:00 Outpatient JORDANA LANDEROS [id number] Vero Orozco 2021-07-17 16:37:57 2021-07-17 17:07:57 [facility] [id number] [id number] Vero ramiro 2021-07-14 14:30:00 2021-07-14 14:30:00 Outpatient JORDANA LANDEROS VERO [id number] Vero ramiro 2021-07-07 09:33:43 2021-07-07 23:59:00 Outpatient BIGG BARR MDA MDA [id number] MD Lisandra davis 2021-07-07 13:54:46 2021-07-07 15:12:27 [id number] 2021-07-07 12:38:20 2021-07-07 12:38:20 Outpatient MARLEN NARAYANAN MDA MDA [id number] MD Lisandra davis 2021-07-07 11:51:02 2021-07-07 11:51:02 Outpatient MARLEN [facility]AYANAN [facility] [id number] [facility] 2021-07-07 10:40:48 2021-07-07 11:43:41 Outpatient BIGG BARR MDA MDA [id number] MD Lisandra davis 2021-05-29 15:20:00 2021-05-29 23:59:00 Outpatient YANNI MAYA MDA MDA [id number] MD Lisandra davis 2021-05-16 14:15:00 2021-05-16 23:59:00 Outpatient BIGG BARR MDA MDA [id number] MD Lisandra davis 2021-05-16 13:21:36 2021-05-16 14:43:37 Outpatient BIGG BARR MDA MDA [id number] MD Lisandra davis 2021-04-30 09:42:04 2021-04-30 23:59:00 Outpatient ULISES TOSCANO MDA MDA [id number] MD Lisandra davis 2021-04-27 09:30:00 2021-04-27 23:59:00 Outpatient ULISES TOSCANO MDA MDA [id number] MD Lisandra davis 2021-04-27 09:00:00 2021-04-27 09:29:00 Outpatient ULISES TOSCANO MDA MDA [id number] MD Lisandra davis 2021-02-18 14:57:00 2021-02-20 17:34:00 Outpatient BART ORTEGA MDA [facility] [id number] MD Lisandra davis 2021-02-19 08:21:47 2021-02-19 08:46:40 Outpatient KARMA PIERSON MDA [facility] [id number] MD Lisandra davis 2021-02-18 04:06:00 2021-02-18 13:41:00 Hospital Encounter Tiarra Rick [facility] [id number] [id number] [facility] 2021-02-09 09:00:00 2021-02-09 23:59:00 Outpatient ULISES TOSCANO MDA [facility] [id number] MD Lisandra davis 2021-02-01 14:40:00 2021-02-01 14:40:00 Outpatient MARY SHAFER [facility] [id number] [facility] 2021-01-25 05:45:00 2021-01-25 14:46:00 Outpatient ULISES TOSCANO [facility] [id number] MD Lisandra davis 2021-01-23 14:15:30 2021-01-23 14:36:06 Outpatient LISA LAMAS MDA MDA [id number] MD Lisandra davis 2021-01-23 12:11:05 2021-01-23 12:20:10 Outpatient LISA LAMAS MDA MDA [id number] MD Lisandra davis 2021-01-19 10:30:00 2021-01-19 23:59:00 Outpatient ULISES TOSCANO MDA MDA [id number] MD Lisandra davis 2021-01-19 09:22:16 2021-01-19 09:22:16 Outpatient ULISES TOSCANO MDA MDA [id number] MD Lisandra davis 2021-01-12 10:00:00 2021-01-12 23:59:00 Outpatient ULISES TOSCANO MDA MDA [id number] MD Lisandra davis 2021-01-12 08:30:00 2021-01-12 09:59:00 Outpatient ULISES TOSCANO MDA MDA [id number] MD Lisandra davis 2021-01-05 14:14:08 2021-01-05 23:59:00 Outpatient EL BUNILUCIANOAM MDA MDA [id number] MD Lisandra davis 2021-01-05 13:13:30 2021-01-05 14:07:40 Outpatient EL BUNI, BIGG MDA MDA [id number] MD Lisandra davis 2021-01-04 14:40:00 2021-01-04 14:40:00 Outpatient [facility] [id number] [facility] 2020-08-23 11:10:08 2020-08-23 23:59:00 Outpatient EL BUNI, BIGG MDA MDA [id number] MD Lisandra davis 2020-08-23 09:46:02 2020-08-23 10:49:07 Outpatient EL BUNI, BIGG MDA MDA [id number] MD Lisandra davis 2020-07-07 00:00:00 2020-07-07 00:00:00 Outpatient EL BUNI, BIGG MDA MDA [id number] MD Lisandra davis 2020-07-07 00:00:00 2020-07-07 00:00:00 Outpatient EL BUNI, BIGG MDA MDA [id number] MD Lisandra davis 2020-07-07 00:00:00 2020-07-07 00:00:00 Outpatient EL BUNI, BIGG MDA MDA [id number] MD Lisandra davis 2020-07-07 00:00:00 2020-07-07 00:00:00 Outpatient EL BUNI, BIGG MDA MDA [id number] MD Lisandra davis 2020-06-30 00:00:00 2020-06-30 00:00:00 Outpatient EL BUNI, BIGG MDA MDA [id number] MD Lisandra davis 2020-06-30 00:00:00 2020-06-30 00:00:00 Outpatient EL BUNI, BIGG MDA MDA [id number] MD Lisandra davis 2020-05-17 09:36:02 2020-05-17 10:19:40 Outpatient EL ALONDRA NOLAN MDA MDA [id number] MD Lisandra davis 2020-05-16 11:56:24 2020-05-16 11:56:24 Outpatient EL BIGG GRANADOS MDA MDA [id number] MD Lisandra davis 2020-05-05 10:33:33 2020-05-05 11:22:14 Outpatient EL BUNLUCIANO ZavalaAM MDA MDA [id number] MD Lisandra davis 2020-05-05 00:00:00 2020-05-05 00:00:00 Outpatient EL BUNLUCIANO ZavalaAM MDA MDA [id number] MD Lisandra davis 2020-05-03 10:16:31 2020-05-03 23:59:00 Outpatient EL TRISTEN ORTEGA EYAL MDA MDA [id number] MD Lisandra davis 2020-04-27 10:16:09 2020-04-27 23:59:00 Outpatient EL TRISTEN ORTEGA EYAL MDA MDA [id number] MD Lisandra davis 2020-04-27 07:12:23 2020-04-27 07:12:23 Outpatient EL BUNLUCIANO ZavalaAM MDA MDA [id number] MD Lisandra davis 2020-04-27 07:12:03 2020-04-27 07:12:03 Outpatient EL BUNLUCIANO ZavalaAM MDA MDA [id number] MD Lisandra davis 2020-04-27 07:11:50 2020-04-27 07:11:50 Outpatient EL BUNI BIGG MDA MDA [id number] MD Lisandra davis 2020-04-27 07:11:21 2020-04-27 07:11:21 Outpatient EL BUNI BIGG MDA MDA [id number] MD Lisandra davis 2020-04-26 15:15:00 2020-04-26 23:59:00 Outpatient EL BUNI, BIGG MDA MDA [id number] MD Lisandra davis 2020-04-26 15:51:10 2020-04-26 15:51:10 Outpatient EL MDA MDA [id number] MD Lisandra davis 2020-04-26 14:54:54 2020-04-26 15:48:59 Outpatient EL ARLETH COLLINSA MDA MDA [id number] MD Lisandra davis 2020-04-26 15:00:00 2020-04-26 15:14:00 Outpatient BIGG BARR ROMI LLANOS [id number] MD Lisandra davis 2020-04-26 13:38:56 2020-04-26 14:48:57 Outpatient BIGG BARR ROMI LLANOS [id number] MD Lisandra davis 2020-03-03 00:00:00 2020-03-03 00:00:00 Telephone [facility] [id number] [id number] [facility] 2020-03-02 00:00:00 2020-03-02 00:00:00 Telephone [facility], Acute [facility] Office [address] [id number] [id number] [id number] [facility] 2020-03-01 13:48:46 2020-03-01 15:35:06 Urgent Care [facility], [facility] [id number] [id number] [id number] [facility] 2020-03-01 13:40:00 2020-03-01 13:40:00 [facility] [id number] Results Test Description Test Time Test Comments Results Result Co mments Source [facility] [id number] 14:33:42* Test Item Value Reference Range Interpretation Comme nts NT-proBNP (test code = 5930960545) 24 pg/mL See_Comment [Automated message] The system which generated this result transmitted reference range: <=125. The reference range was not used to interpret this result as normal/abnormal. KIERA (test code = KIERA) Biotin has been reported to cause a negative bias, interpret results relative to patient's use of biotin. Lab Interpretation (test code = 08026-1) Normal [facility]ballThyroid Stimulating Hormone (TSH)2021-02-18 12:09:34* Test Item Value Reference Range Interpretation Comme nts TSH (test code = 4328571084) See_Comment [Automated [employer]] The system which generated this result transmitted reference range: 0.45 - 4.70 mIU/L. The reference range was not used to interpret this result as normal/abnormal. Lab Interpretation (test code = 14804-0) Normal [facility]ballGlycosylated Hemoglobin (A1C)2021-02-18 11:50:23* Test Item Value Reference Range Interpretation Comme nts HGB A1C (test code = 4548-4) 5.7 % 4.0-5.7 KIERA (test code = KIERA) Reference RangesNormal: <5.7%Prediabetes: 5.7 - 6.4%Diabetes: > 6.5% Lab Interpretation (test code = 71403-7) Normal [facility]ball[facility]id Panel (Total Cholesterol, Triglycerides, HDL)2021-02-18 11:40:12* Test Item Value Reference Range Interpretation Comme nts CHOL (test code = 6227777603) 177 mg/dL 120-200 HDL (test code = 0849263970) 36 mg/dL >50 L HDLC RATIO (test code = 5988643682) See_Comment H [Automated [employer]] The system which generated this result transmitted reference range: <=4.5. The reference range was not used to interpret this result as normal/abnormal. TRIG (test code = 0513815777) 215 mg/dL 30-170 H LDL CHOL (test code = 43078-3) 98 mg/dL See_Comment [Automated [employer]] The system which generated this result transmitted reference range: <=160. The reference range was not used to interpret this result as normal/abnormal. VLDL (test code = 1020963616) 43 mg/dL 5-60 Lab Interpretation (test code = 85006-8) Abnormal [facility]ball[facility] METABOLIC PANEL (NA, K, CL, CO2, GLUCOSE, BUN, CREATININE, CA)2021-02-18 11:39:52* Test Item Value Reference Range Interpretation Comme nts NA (test code = 3383226280) 138 mmol/L 135-145 K (test code = 1269716014) 3.7 mmol/L 3.5-5.0 CL (test code = 0942862660) 104 mmol/L 98-108 CO2 TOTAL (test code = 1044791277) 27 mmol/L 23-31 AGAP (test code = 4789225790) 2-16 BUN (test code = 8817457768) 8 mg/dL 7-23 GLUCOSE (test code = 6471068016) 120 mg/dL 70-110 H CREATININE (test code = 9063518331) 0.45 mg/dL 0.50-1.04 L CALCIUM (test code = 4340670489) 9.6 mg/dL 8.6-10.6 eGFR (test code = 7638419329) mL/min/1.73m2 KIERA (test code = KIERA) Association of [...] or abnormalities in imaging tests). Lab Interpretation (test code = 67604-2) Abnormal [facility]ball[facility]ATIC FUNCTION PANEL (90021) (ALB,T.PRO,BILI T,BU/BC,ALT,AST,ALK PHOS)2021-02-18 11:39:52* Test Item Value Reference Range Interpretation Comme nts TOTAL BILI (test code = 0147500242) 0.3 mg/dL 0.1-1.1 BILI UNCON (test code = 5545004734) 0.2 mg/dL 0.1-1.1 BILI CONJ (test code = 1559252217) 0.0 mg/dL 0.0-0.3 T PROTEIN (test code = 0146313150) 6.3 g/dL 6.3-8.2 ALBUMIN (test code = 6367819057) 3.9 g/dL 3.5-5.0 ALK PHOS (test code = 9449168067) 75 U/L 34-122 ALTv (test code = 1742-6) 32 U/L 5-35 AST(SGOT) (test code = 6645579112) 30 U/L 13-40 Lab Interpretation (test cod e = 71556-5) Normal [facility]ballD-[id number] 11:27:49* Test Item Value Reference Range Interpretation Comments D-DIMER (test code = 4367317446) See_Comment H [Automated message] The system which generated this result transmitted reference range: <0.41 ?g/mL (FEU). The reference range was not used to interpret this result as normal/abnormal. KIERA (test code = KIERA) This test may be used in conjunction with a clinical pretest [...] context, in forming a diagnosis. Lab Interpretation (test code = 69028-6) Abnormal [facility] TomballaPTT2021-04-24 11:21:10* Test Item Value Reference Range Interpretation Comme [facility] APTT Patient (test code = 3173-2) See_Comment [Automated message] The system which generated this result transmitted reference range: 23 - 38 Seconds. The reference range was not used to interpret this result as normal/abnormal. KIERA (test code = KIERA) The [facility] patient population mean normal value for aPTT is 30 seconds. Lab Interpretation (test code = 68637-6) Normal [facility] TomballProthrombin Time / [id number] 11:19:09* Test Item Value Reference Range Interpretation Comme [facility] PROTIME PATIENT (test code = 5964-2) See_Comment [Automated [employer]a ge] The system which generated this result transmitted reference range: 12.0 - 14.7 Seconds. The reference range was not used to interpret this result as normal/abnormal. INR (test code = 6301-6) Normal INR <1.1; Warfarin Therapeutic range 2.0 to 3.0 or 2.5 to 3.5, depending upon the indications. Lab Interpretation (test code = 73599-8) Normal [facility]ballCBC WITH [id number] 11:09:46* Test Item Value Reference Range Interpretation Comme [facility] WBC (test code = 6690-2) See_Comment [Automated messa ge] The system which generated this result transmitted reference range: 4.30 - 11.10 10*3/?L. The reference range was not used to interpret this result as normal/abnormal. RBC (test code = 789-8) See_Comment [Automated messa ge] The system which generated this result transmitted reference range: 3.93 - 5.25 10*6/?L. The reference range was not used to interpret this result as normal/abnormal. HGB (test code = 718-7) 11.8 g/dL 11.6-15.0 HCT (test code = 4544-3) 35.6 % 35.7-45.2 L MCV (test code = 787-2) 87.7 fL 80.6-95.5 MCH (test code = 785-6) 29.1 pg 25.9-32.8 MCHC (test code = 786-4) 33.1 g/dL 31.6-35.1 RDW-SD (test code = 90871-6) 43.2 fL 39.0-49.9 RDW-CV (test code = 788-0) 13.4 % 12.0-15.5 PLT (test code = 777-3) See_Comment [Automated messa ge] The system which generated this result transmitted reference range: 166 - 358 10*3/?L. The reference range was not used to interpret this result as normal/abnormal. MPV (test code = 99817-0) 11.6 fL 9.5-12.9 NRBC/100 WBC (test code = 7346424868) See_Comment [Automated [employer] ssage] The system which generated this result transmitted reference range: 0.0 - 10.0 /100 WBCs. The reference range was not used to interpret this result as normal/abnormal. NRBC x10^3 (test code = 0649669035) <0.01 See_Comment [Automated messa ge] The system which generated this result transmitted reference range: 10*3/?L. The reference range was not used to interpret this result as normal/abnormal. GRAN MAT (NEUT) % (test code = 770-8) 66.9 % IMM GRAN % (test code = 3548628073) 0.40 % LYMPH % (test code = 736-9) 22.6 % MONO % (test code = 5905-5) 6.2 % EOS % (test code = 713-8) 3.5 % BASO % (test code = 706-2) 0.4 % GRAN MAT x10^3(ANC) (test code = 3656765353) 5.22 10*3/uL 1.88-7.09 IMM GRAN x10^3 (test code = 7157000560) 0.03 10*3/uL 0.00-0.06 LYMPH x10^3 (test code = 731-0) 1.76 10*3/uL 1.32-3.29 MONO x10^3 (test code = 742-7) 0.48 10*3/uL 0.33-0.92 EOS x10^3 (test code = 711-2) 0.27 10*3/uL 0.03-0.39 BASO x10^3 (test code = 704-7) 0.03 10*3/uL 0.01-0.07 Lab Interpretation (test code = 69987-4) Abnormal [facility] URINALYSIS W SPECIFIC [id number] 19:43:00* Test Item Value Reference Range Interpretation Comme nts POCT U SP GRAV (test code = 3255) 1.010 mg/dl 1.005-1.025 POCT PH U (test code = 3254) 8 mg/dl 5-8 POCT U LEUK EST (test code = 3263) + Negative - Negative POCT U NIT (test code = 3262) negative Negative - Negati ve POCT U PROT (test code = 3259) trace Negative - Negative POCT U GLU (test code = 3256) Negative - Negati ve POCT U KETONE (test code = 3258) negative Negative - Negative POCT U UROBILI (test code = 3260) normal 0.2-1 POCT U BILI (test code = 3261) negative Negative - Negative POCT U BLD (test code = 3257) Negative - Negati ve POCT U COLOR (test code = 3266) dark yellow POCT U APPEAR (test code = 3267) [facility] SPECIFIC [id number] 19:43:00* Test Item Value Reference Range Interpretation Comme nts POCT U SP GRAV (test code = 3255) 1.010 mg/dl 1.005-1.025 POCT PH U (test code = 3254) 8 mg/dl 5-8 POCT U LEUK EST (test code = 3263) + Negative - Negative POCT U NIT (test code = 3262) negative Negative - Negati ve POCT U PROT (test code = 3259) trace Negative - Negative POCT U GLU (test code = 3256) Negative - Negati ve POCT U KETONE (test code = 3258) negative Negative - Negative POCT U UROBILI (test code = 3260) normal 0.2-1 POCT U BILI (test code = 3261) negative Negative - Negative POCT U BLD (test code = 3257) Negative - Negati ve POCT U COLOR (test code = 3266) dark yellow POCT U APPEAR (test code = 3267) [facility]
--- NOTE | 2024-06-30 13:19 | RAD REPORT ---
EXAM DESCRIPTION: CT - Abdomen Pelvis Wo Contrast - 06/30/2024 12:55 pm CLINICAL HISTORY: Abdominal pain. ABD PAIN COMPARISON: Thorax Wo Con dated 05/22/2022 TECHNIQUE: CT imaging of the abdomen and pelvis was performed without contrast. Solid organ, bowel a nd vascular assessment is limited due to lack of IV and oral contrast. All CT scans are performed using dose optimization technique as appropriate and may include automated exposure control or mA/KV adjustment according to patient size. FINDINGS: The lower lung bacon are clear.Small hiatal hernia with postsurgical clips present. Delores cystectomy. The liver, spleen, pancreas, adrenal glands are within normal limits for a limited non-contrast exami nation.Punctate stones in the calices of both kidneys without hydronephrosis. No bowel obstruction, free air, free fluid or abscess. The appendix is not identified as a discrete s tructure, however, no secondary findings of appendicitis are identified. Scattered diverticulosis of the sigmoid colon without diverticulitis. Small fat containing umbilical hernia. Small presumed radiation beads are present in the vaginal cuff region. The osseous structures are within normal limits. IMPRESSION: Nonvisualized appendix without secondary findings of acute appendicitis seen. Punctate caliceal stones in both kidneys without hydronephrosis. Mild diverticulosis coli of the sigmoid colon without diverticulitis. A limited non-contrast examination was performed as detailed.
[2024-06-30 13:29] LABS: Absolute Lymphocytes (CBC) 0.9 K/uL (0.7-4.9); Absolute Monocytes 0.4 K/uL (0.1-1.3); Absolute Neutrophil 11.5 K/uL (1.8-8.0); Basophils % 0.3 % (0-1.3); Eosinophils % 0.1 % (0-4.4); Hematocrit 42.7 % (36.0-45.0); Hemoglobin 13.7 g/dL (12.0-15.0); MCH 29.2 pg (27.0-35.0); MCHC 32.1 g/dL (32.0-36.0); MCV 90.8 fL (80-100); MPV 10.7 fL (7.6-11.3); Monocytes % 3.4 % (3.3-12.3); Neutrophils % 89.2 % (41.7-73.7); Platelets 242 thou/uL (152-406); Red Cell Distribution Width 13.6 % (12.1-15.2)
[2024-06-30 13:32] LABS: Specific Gravity > 1.030 (1.005-1.030)
[2024-06-30 13:35] LABS: Specific Gravity > 1.030 (1.005-1.030); Sqamous Epithelial <5 /HPF (None Seen); Urine Bacteria <20 /HPF (<20); Urine Bilirubin NEGATIVE (Negative); Urine Blood 1+ (Negative); Urine Clarity Extremely Turbid (Clear); Urine Color Yellow (Yellow); Urine Culture Reflex Order REFLEXED; Urine Glucose NEGATIVE (Negative); Urine Ketones NEGATIVE (Negative); Urine Microscopic Reflex YN ORDER UMIC; Urine Mucus 4+ /HPF (None Seen); Urine Nitrite NEGATIVE (Negative); Urine Protein 1+ (Negative); Urine Urobilinogen 1+ (Normal); Urine WBC 20-50 /HPF (<5)
[2024-06-30 13:46] LABS: Albumin 3.9 g/dL (3.4-5.0); Anion Gap 7.4 mEq/L (5.0-15.0); Bilirubin Total 0.6 mg/dL (0.2-1.0); Globulin 3.8 g/dL (2.3-3.5); Potassium 3.4 mEq/L (3.5-5.1); Protein, Total 7.7 g/dL (6.4-8.2)
--- NOTE | 2024-06-30 15:05 | ER ---
Nurse's Notes [facility] Name: Natalie Vickers Age: 48 yrs Sex: Female : 1975 Arrival Date: 06/30/2024 Time: 12:22 Bed 11 Private MD: Diagnosis: UTI/ Urinary tract infection, site not specified;Lower abdominal pain, unspecified Presentation: 06/30 12:33 Chief complaint: Patient states: STATES ABD AND BACK PAIN. SEEN AT NEXT LEVEL. SENT TO ED FOR R/O APPY. DX WITH KIDNEY INFECTION. Coronavirus screen: Client denies travel out of the [place] in the last 14 days. At this time, the client does not indicate any symptoms associated with coronavirus-19. Ebola Screen: Patient negative for fever greater than or equal to 101.5 degrees Fahrenheit, and additional compatible Ebola Virus Disease symptoms Patient denies exposure to infectious person. Patient denies travel to an Ebola-affected area in the 21 days before illness onset. No symptoms or risks identified at this time. Initial Sepsis Screen: Does the patient meet any 2 criteria? No. Patient's initial sepsis screen is negative. Does the patient have a suspected source of infection? No. Patient's initial sepsis screen is negative. Risk Assessment: Do you want to hurt yourself or someone else? Patient reports no desire to harm self or others. Onset of symptoms was June 30, 2024. 12:33 Method Of Arrival: Ambulatory 12:33 Acuity: FANY 3 Triage Assessment: 12:34 General: Appears in no apparent distress. uncomfortable, Behavior is calm, cooperative, iw appropriate for age. Pain: Complains of pain in abdomen. Neuro: Level of Consciousness is awake, alert, obeys commands, Oriented to person, place, time, situation. Respiratory: Airway is patent Respiratory effort is even, unlabored, Respiratory pattern is regular, symmetrical. GI: Abdomen is flat, Abdomen is tender to palpation in right lower quadrant and left lower quadrant Reports lower abdominal pain, nausea, vomiting, VOMITING X 3 TODATY. : Reports burning with urination. Historical: - Allergies: 12:34 Iodine; iw 12:34 Morphine; iw 12:34 Phenergan; iw 12:34 Zofran; iw - PMHx: 12:34 Lupus erythematosus; cervical CA; Osteoporosis; Rheumatoid Arthritis; PE; iw - PSHx: 12:36 Cholecystectomy; iw - Immunization history:: Adult Immunizations unknown. - Infectious Disease History:: Denies. - Social history:: Smoking status: Patient denies any tobacco usage or history of. - Family history:: not pertinent. - Hospitalizations: : No recent hospitalization is reported. Screenin:45 [facility] ED Fall Risk Assessment (Adult) History of falling in the last 3 months, iw including since admission No falls in past 3 months (0 pts) Confusion or Disorientation No (0 pts) Intoxicated or Sedated No (0 pts) Impaired Gait No (0 pts) Mobility Assist Device Used No (0 pt) Altered Elimination No (0 pt) Score/Fall Risk Level 0 - 2 = Low Risk Oriented to surroundings, Maintained a safe environment. Abuse screen: Denies threats or abuse. Denies injuries from another. Nutritional screening: No deficits noted. Tuberculosis screening: No symptoms or risk factors identified. Assessment: 14:45 General: Appears in no apparent distress. Behavior is calm, cooperative. Pain: iw Complains of pain in left lower quadrant and right lower quadrant and abdomen. Neuro: Level of Consciousness is awake, alert, obeys commands, Oriented to person, place, time, situation, Moves all extremities. Full function. Cardiovascular: Patient's skin is warm and dry. Respiratory: Respiratory effort is even, unlabored, Respiratory pattern is regular. GI: Abdomen is non-distended, Bowel sounds present X 4 quads. Reports lower abdominal pain. GI: Reports. Derm: Skin is intact, is healthy with good turgor. Vital Signs: 12:33 BP 126 / 74; Pulse 95; Resp 16; Temp 98.3; Pulse Ox 100% ; Weight 60.78 kg; Height 5 iw ft. 2 in. ; Pain 8/10; 12:33 Body Mass Index 24.51 (60.78 kg, 157.48 cm) iw 12:33 Pain Scale: Adult iw ED Course: 12:25 Patient arrived in ED. mr 12:34 Triage completed. iw 12:35 Arm band placed on Patient placed in waiting room. iw 12:37 Tanner Garcia MD is Attending Physician. rn 12:56 CT Abd/Pelvis - Without Contrast In Process Unspecified. EDMS 13:21 CBC with Diff Sent. bc6 13:21 CMP Sent. bc6 13:21 Lipase Sent. bc6 13:21 Test, Urine Sent. bc6 13:21 Urinalysis w/ reflexes Sent. bc6 13:21 Initial lab(s) drawn, by me, sent to lab. Urine collected: clean catch specimen. bc6 Inserted saline lock: 20 gauge in left antecubital area, using aseptic technique. Blood collected. Flushed with 10 mL NS. 15:32 Malathi Machado, RN is Primary Nurse. iw 15:45 No provider procedures requiring assistance completed. IV discontinued, intact, iw bleeding controlled, No redness/swelling at site. Pressure dressing applied. Administered Medications: 15:41 Drug: Ketorolac IVP 15 mg IVP once Route: IVP; Site: left wrist; iw 15:42 Follow up: Response: No adverse reaction; Medication Administered at Departure iw Medication: 14:45 VIS not applicable for this client. iw Outcome: 15:05 Discharge ordered by . rn 15:45 Discharged to home ambulatory, iw 15:45 Condition: good 15:45 Discharge instructions given to patient, Instructed on discharge instructions, follow up and referral plans. medication usage, Demonstrated understanding of instructions, follow-up care, medications, Prescriptions given X 1, 15:46 Patient left the ED. iw Signatures: Dispatcher [employer] EDOH Little De La Cruz, Reg Reg mr Malathi Machado, YVON SANZ iw Tanner Garcia MD MD rn [place], [facility]
--- NOTE | 2024-06-30 15:05 | EDPHYS ---
Physician Documentation [facility] Name: Natalie Vickers Age: 48 yrs Sex: Female : 1975 Arrival Date: 06/30/2024 Time: 12:22 Bed 11 Private MD: ED Physician Tanner Garcia HPI: 06/30 14:12 This 48 yrs old Female presents to ER via Ambulatory with complaints of rn Urinary Problem, Abdominal Pain. 14:12 The patient presents with abdominal pain in the lower abdomen. rn 14:12 Associated signs and symptoms: Pertinent positives: nausea and vomiting, Pertinent rn negatives: fever. Modifying factors: The symptoms are alleviated by nothing, the symptoms are aggravated by touching the area. Severity of pain: At its worst the pain was moderate in the emergency department the pain is unchanged. The patient has not experienced similar symptoms in the past. Patient reports seen in urgent care, had been having lower abdominal and back pain for some time. No trauma. No fever. Reports chills. Reports nausea and vomiting. Diagnosed with "bad UTI ", but they were also concerned for appendicitis so sent her here for imaging and rule out appendicitis.. Historical: - Allergies: 12:34 Iodine; iw 12:34 Morphine; iw 12:34 Phenergan; iw 12:34 Zofran; iw - PMHx: 12:34 Lupus erythematosus; cervical CA; Osteoporosis; Rheumatoid Arthritis; PE; iw - PSHx: 12:36 Cholecystectomy; iw - Immunization history:: Adult Immunizations unknown. - Infectious Disease History:: Denies. - Social history:: Smoking status: Patient denies any tobacco usage or history of. - Family history:: not pertinent. - Hospitalizations: : No recent hospitalization is reported. ROS: 14:12 Constitutional: Positive for chills, negative for documented fever Cardiovascular: rn Negative for chest pain, palpitations, and edema, Respiratory: Negative for shortness of breath, cough, wheezing, and pleuritic chest pain, Abdomen/GI: Positive for lower abdominal pain with nausea and vomiting Back: Positive for lower back pain : Positive for dysuria Exam: 14:12 Constitutional: This is a well developed, well nourished patient who is awake, alert, rn and in no acute distress. Cardiovascular: Regular rate and rhythm. No pulse deficits. Respiratory: No increased work of breathing, no retractions or nasal flaring. Abdomen/GI: Soft, mild suprapubic tenderness, no rebound or guarding. Back: Negative for CVA tenderness. Vital Signs: 12:33 BP 126 / 74; Pulse 95; Resp 16; Temp 98.3; Pulse Ox 100% ; Weight 60.78 kg; Height 5 iw ft. 2 in. ; Pain 8/10; 12:33 Body Mass Index 24.51 (60.78 kg, 157.48 cm) iw 12:33 Pain Scale: Adult iw MDM: 12:37 Patient medically screened. rn 15:04 Differential diagnosis: appendicitis, non-specific abd pain, Ureterolithiasis, urinary rn tract infection. Differential diagnosis: Pyelonephritis. Data reviewed: vital signs, nurses notes, lab test result(s), radiologic studies, CT scan, and as a result, I will discharge patient. Counseling: I had a detailed discussion with the patient and/or guardian regarding the historical points, exam findings, and any diagnostic results supporting the discharge/admit diagnosis, lab results, radiology results, the need for outpatient follow up, to return to the emergency department if symptoms worsen or persist or if there are any questions or concerns that arise at home. Special discussion: Based on the patient's Hx, exam, and Dx evaluation, there is no indication for emergent surgery or inpatient Tx. It is understood by the patient/guardian that if the Sx's persist or worsen they need to return immediately for re-evaluation. I discussed with the patient/guardian in detail that at this point there is no indication for admission to the hospital. It is understood, however, that if the symptoms persist or worsen the patient needs to return immediately for re-evaluation. 15:04 ED course: No acute findings on CT abdomen pelvis, specifically no acute appendicitis. rn Has bilateral kidney stones but none are passing. UA consistent with UTI, mildly elevated WBC. No systemic symptoms. Stable vital signs. Urgent care has written for oral antibiotics and pain medication for patient she is to pick them up at pharmacy. Will not add any new prescriptions. Return precautions given and understood.. 06/30 12:43 Order name: CBC with Diff rn 06/30 12:43 Order name: CMP; Complete Time: 14:02 rn 06/30 12:43 Order name: Lipase; Complete Time: 14:02 rn 06/30 12:43 Order name: Test, Urine; Complete Time: 14:02 rn 06/30 12:43 Order name: Urinalysis w/ reflexes; Complete Time: 14:02 rn 06/30 13:32 Order name: CBC Smear Scan EDMI 06/30 13:38 Order name: Urine Culture EDMI 06/30 12:43 Order name: CT Abd/Pelvis - Without Contrast; Complete Time: 14:02 rn 06/30 12:43 Order name: IV Saline Lock; Complete Time: 13:21 rn 06/30 12:43 Order name: Labs collected and sent; Complete Time: 13:21 rn Administered Medications: 15:41 Drug: Ketorolac IVP 15 mg IVP once Route: IVP; Site: left wrist; iw 15:42 Follow up: Response: No adverse reaction; Medication Administered at Departure iw Disposition Summary: 06/30/24 15:05 Discharge Ordered Notes: Location: Home rn Problem: new rn Symptoms: have improved rn Condition: Stable rn Diagnosis - UTI/ Urinary tract infection, site not specified rn - Lower abdominal pain, unspecified rn Followup: rn - With: Private Physician - When: As needed - Reason: Recheck today's complaints, Re-evaluation by your physician Discharge Instructions: - Discharge Summary Sheet rn - Abdominal Pain, Adult rn - Urinary Tract Infection, Adult rn Forms: - Work release form iw - Medication Reconciliation Form rn - Antibiotic heat treat 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 EDMS EDMS 12:43 12:43 COMPREHENSIVE METABOLIC PANEL+C.LAB.BRZ ordered. EDMS EDMS 12:43 12:43 LIPASE+C.LAB.BRZ ordered. EDMS EDMS 12:43 12:43 Test, Urine+UC.LAB.BRZ ordered. EDMS EDMS 12:43 12:43 Urinalysis+U.LAB.BRZ ordered. EDMS EDMS
[2024-06-30] MEDS ORDERED: KETOROLAC 30 MG/ML INJ ONE (15:37)
[2024-06-30 15:51] VITALS: BP 126/74; TEMP 98.3; O2SAT 100
[2024-06-30 16:56] LABS: Blood Morphology Comment NOTED (NOT SEEN); Platelet Estimate ADEQ; White Blood Cell Scan OK (OK)
[2024-06-30 16:57] LABS: Poikilocytosis 1+; Stomatocytes 1+
== END 2024-06-30 15:46 | disposition home or self-care (01) ==
LOC: ER 12:22
DX: N39.0 Urinary tract infection, site not specified (principal); R11.2 Nausea with vomiting, unspecified
CPT/HCPCS: 36415; 74176; 80053; 81001; 81025; 83690; 85025; 87077; 87086; 87088; 87186; 96374; 99284